=== PATIENT | female | born 1965 | race Caucasian/White ===

== ENCOUNTER 2017-10-09 07:30 | Outpatient (CLI) | payer BC ==
[~2017-10-09] VITALS: Ht 170.2 cm; Wt 90.7 kg
[2017-10-09] MEDS ORDERED: CYCL10TA9 PO (08:16)
[2017-10-09] MEDS ORDERED: HYDR200T46 PO (08:16)
[2017-10-09] MEDS ORDERED: PRAV20TA3 PO (08:16)
[2017-10-09] MEDS ORDERED: LEVO125T6 PO (08:16)
[2017-10-09] MEDS ORDERED: PANT40TA3 PO (08:16)
[2017-10-09] MEDS ORDERED: CANA300T PO (08:16)
[2017-10-09] MEDS ORDERED: TRAM50TA2 PO (08:16)
== END 2017-10-09 08:22 ==
LOC: PREOP 07:30
PROVIDERS: ATTEND Otolaryngology Otolaryngology/Facial Plastic Surgery
DX: Z01.818 Encounter for other preprocedural examination (principal); J32.9 Chronic sinusitis, unspecified; H66.93 Otitis media, unspecified, bilateral; J34.3 Hypertrophy of nasal turbinates

== ENCOUNTER 2017-10-15 06:28 | Day surgery (SDC) | payer BC ==
[~2017-10-15] VITALS: Ht 170.2 cm; Wt 90.7 kg
[~2017-10-15 06:28] MED LIST: CANA300T PO; CYCL10TA9 PO; HYDR200T46 PO; LEVO125T6 PO; PANT40TA3 PO; PRAV20TA3 PO; TRAM50TA2 PO
[2017-10-15] MEDS ORDERED: COCAINE HCL 4% 2 ML SYR ONE (06:49)
[2017-10-15] MEDS ORDERED: BSS 15 ML ONE (06:49)
[2017-10-15] MEDS ORDERED: PHENYLEPHRINE 0.5% NASAL SPR (NEO-SYNEPHRINE) REG ONE (06:49)
[2017-10-15] MEDS ORDERED: LIDOCAINE/EPI 1%-1:200,000 (XYLOCAINE) 10 ML VIAL ONE (06:49)
[2017-10-15 07:00] VITALS: BP 134/93
[2017-10-15] MEDS ORDERED: AMPICILLIN/SULBACTAM 1.5 GM/NS 100 ML IVPB IV ONE ×2 (07:15)
[2017-10-15] MEDS ORDERED: HYDROCORTISONE 100 MG/2 ML (Solu-CORTEF) VIAL IV ONE ×2 (07:15→07:30)
--- NOTE | 2017-10-15 07:16 | Progress Note-Pre Operative ---
Pre-Operative Progress Note H&P Reviewed The H&P was reviewed, patient examined and no changes noted. Date Seen by Provider: Oct 15, 2017 Time Seen by Provider: 07:15 Date H&P Reviewed: Oct 15, 2017 Time H&P Reviewed: 07:15 Pre-Operative Diagnosis: Bilat Chronic Sinusitis, Deviated SEptum, Bilat red of inf turbs, Bilat YENY BOB BROOKS MD Oct 15, 2017 7:16 am
[2017-10-15] MEDS ORDERED: LIDOCAINE PF 2% 5 ML (XYLOCAINE) VIAL ONE (07:30)
[2017-10-15] MEDS ORDERED: SEVOFLURANE (ULTANE) 15 ML INHAL SOLN ONE ×3 (07:30→09:07)
[2017-10-15] MEDS ORDERED: FAMOTIDINE 20MG/2ML IV (PEPCID) IV ONE (07:30)
[2017-10-15] MEDS ORDERED: fentaNYL INJECTION 100 MCG/2 ML AMP ONE ×2 (07:30→08:45)
[2017-10-15] MEDS ORDERED: DEXAMETHASONE 10 MG/ML (DECADRON) 1 ML VIAL ONE (07:30)
[2017-10-15] MEDS ORDERED: ROCURONIUM 10 MG/ML 5 ML SYRINGE IV ONE (07:30)
[2017-10-15] MEDS ORDERED: AMPICILLIN/SULBACTAM INJECTION 1.5 GM in NS (IVPB) 100 ML IV ONE (07:30)
[2017-10-15] MEDS ORDERED: proPOfol 200 MG/20 ML (DIPRIVAN) VIAL IV ONE (07:30)
[2017-10-15] MEDS ORDERED: MIDAZOLAM 2 MG/2 ML (VERSED) VIAL ONE (07:30)
[2017-10-15] MEDS ORDERED: ONDANSETRON 4 MG/2 ML (SDV) Z0FRAN ONE (07:30)
[2017-10-15] MEDS ORDERED: GLYCOPYRROLATE 0.2 MG/ML (ROBINUL) 2 ML VIAL ONE (07:30)
[2017-10-15] MEDS ORDERED: NEOSTIGMINE 1 MG/ML 5 ML SYRINGE ONE (07:30)
[2017-10-15] MEDS: LACTATED RINGERS 1,000 ML IV PRN ×2 (07:32→08:25)
[2017-10-15] MEDS ORDERED: MEPERIDINE (DEMEROL) INJ 50 MG/ML IVP PRN (09:30)
[2017-10-15] MEDS ORDERED: ONDANSETRON 4 MG/2 ML (SDV) Z0FRAN IVP PRN (09:30)
[2017-10-15] MEDS ORDERED: D5 1/2 NS W/KCL 20 MEQ/L 1,000 ML IV SCH (09:31)
--- NOTE | 2017-10-15 09:31 | Progress Note-Post Operative ---
Post-Operative Progess Note Surgeon (s)/Tour Counselor (s) Surgeon BOB BROOKS MD Tour Counselor n/a Pre-Operative Diagnosis Bilat Chronic Sinusitis, Deviated SEptum, Bilat red of inf turbs, Bilat YENY Post-Operative Diagnosis same Post-Op Procedure Note Date of Procedure: Oct 15, 2017 Name of Procedure Performed: Bilat ESS, Nasal Septoplasty, Bilat Red of Inf Turbs Description & Findings Description and Findings: n/a Anesthesia Type get Estimated Blood Loss minimal Packing none. Specimen(s) collected/removed bilat chronic sinus disease, nasal septum BOB BROOKS MD Oct 15, 2017 9:31 am
[2017-10-15] MEDS ORDERED: HYDROcodone/APAP 5 MG/325 MG (LORTAB) TAB PO PRN (09:45)
[2017-10-15] MEDS ORDERED: predniSONE 20 MG TAB PO ONE (09:45)
[2017-10-15] MEDS ORDERED: ACETAMINOPHEN 325 MG TABLET/CAPLET (TYLENOL) PO PRN (09:45)
[2017-10-15] MEDS ORDERED: PROMETHAZINE INJ 25 MG/ML (PHENERGAN) AMP IVP PRN (09:45)
[2017-10-15] MEDS ORDERED: CIPR5DRO OP (09:51)
[2017-10-15] MEDS ORDERED: HYDR-3812 PO (09:51)
[2017-10-15] MEDS ORDERED: PRD20T PO (09:51)
[2017-10-15] MEDS ORDERED: AMOX-355 PO (09:51)
[2017-10-15] MEDS: morphine INJ 10 MG/ML 1ML (SYR OR VIAL) IVP PRN ×2 (10:00→10:04)
--- OUTSIDE RECORDS SUMMARY | 2017-10-15 10:37 | XMS REPORT | CCD ---
Author Author JENSEN MILTON Organization Unknown Address [address] [address] [place] [id number] Care Team Providers Care [employer] Superintendent Name Role Phone SHLOMO RUSH MD Attphys SHLOMO RUSH MD Prisurg Vital Signs Unknown. Allergies Unknown. Procedures Procedure Code Procedure Type Date HIP COMP MIN [address] 08/14/2013 CERVICAL SPINE; 2 VIEWS OR [id number] 08/2013 SHOULDER MINIMUM [id number] 08/14/2013 History of Immunizations Unknown. Problems Unknown. Results Unknown. Medications Unknown. Medications Administered Unknown. Encounters Unknown. Social History Smoking Status Code Start Date End Date Never smoker [id number] Patient Decision Aids Unknown. Instructions You were admitted to [facility] on 08/14/2013. You were discharged from [facility] on 08/14/2013. Should you have any questions prior to discharge, please contact a member of your healthcare team. If you have left the hospital and have any questions, please contact your primary care physician. Chief Complaint and Reason For Visit Chief Complaint Date of Onset FALL INJURY BACK INJURY Function Status Unknown. Plan of Care Unknown. Referral/Transition of Care Unknown.
--- OUTSIDE RECORDS SUMMARY | 2017-10-15 10:39 | XMS REPORT ---
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 Name Role Phone Kristy Winchester PCP Unavailable Shayy Fitzgerald PreferredProvider Unavailable Allergies and Adverse Reactions Name Reaction Notes Latex iodine Plan of Treatment Planned Activity Comments Planned Date Planned Time Plan/Goal Pap smear 07/01/2016 12:00 AM Comprehensive Metabolic Panel 07/01/2012 12:00 AM Lipid panel (total cholesterol, lipoproteins, HDL, triglycerides) 2011 12:00 AM Hemoglobin A1c 07/01/2012 12:00 AM Thyroid stimulating hormone (TSH) 07/01/2012 12:00 AM CBC (automated H&H, platelets, WBC and automated differential) 07/01/2012 12:00 AM Medications Active Name Start Date Estimated Completion Date SIG Comments loratadine 10 mg oral tablet 09/05/2013 TAKE 1 TABLET BY ORAL ROUTE ONCE DAILY clobetasol 0.05 % topical ointment 09/16/2013 APPLY TO AFFECTED RED AREA(S) EVERY NIGHT AT BEDTIME nystatin 100,000 unit/gram topical powder 01/26/2014 apply to the affected area(s) by topical route 2 times per day nystatin-triamcinolone 100,000-0.1 unit/g-% topical cream 01/26/2014 apply to the affected area(s) by topical route 2 times per day in the morning and evening cyclobenzaprine 10 mg oral tablet 04/26/2014 take 1 tablet (10 mg) by oral route 3 times per day for 30 days loratadine 10 mg oral tablet 06/30/2014 TAKE 1 TABLET BY ORAL ROUTE ONCE DAILY cyclobenzaprine 10 mg oral tablet 12/11/2014 TAKE 1 TABLET BY MOUTH THREE TIMES DAILY FOR 30 DAYS loratadine 10 mg oral tablet 07/17/2015 TAKE 1 TABLET BY ORAL ROUTE ONCE DAILY loratadine 10 mg oral tablet 09/12/2015 TAKE 1 TABLET BY ORAL ROUTE ONCE DAILY Invokana 100 mg oral tablet take 1 tablet (100 mg) by oral route once daily before the first meal of the day Name Start Date Expiration Date SIG Comments Flector 1.3 % transdermal patch 12 hour 07/26/2009 10/24/2009 apply 1 patch ( 180 mg) to most painful area by transdermal route 2 times per day for 30 days Medrol (Abram) 4 mg oral tablets,dose pack 08/29/2009 take as directed Flexeril 10 mg oral tablet 07/10/2010 09/08/2010 take1/2- 1 tablet (10 mg) by oral route q hs/PRN meloxicam 15 mg oral tablet 07/10/2010 11/07/2010 take 1 tablet (15 mg) by oral route once daily /PRN Loprox 1 % topical shampoo 07/11/2010 01/23/2011 apply 5 - 10 milliliters to wet hair by topical route twice weekly for 4 weeks with at least 3 days between each shampooing betamethasone valerate 0.1 % topical ointment 07/11/2010 07/25/2010 apply a thin film to affected area(s) by topical route 3 times per day for 14 days Prednisone 20 mg 07/11/2010 07/25/2010 one table PO QD amoxicillin 875 mg oral tablet 09/10/2010 09/20/2010 take 1 tablet (875 mg) by oral route every 12 hours for 10 days diclofenac sodium 75 mg oral tablet,delayed release (DR/EC) 07/15/20112011 TAKE 1 TABLET BY MOUTH ONCE DAILY NEEDED venlafaxine 150 mg oral capsule,extended release 24hr 09/22/2011 10/22/2011 TAKE 1 CAPSULE BY MOUTH ONCE DAILY WITH FOOD loratadine 10 mg oral tablet 11/13/2011 11/07/2012 take 1 tablet (10 mg) by oral route once daily Zithromax Z-Abram 250 mg oral tablet 06/07/2012 06/12/2012 Take 2 tablets the first day (500 mg) followed by 1 tablet (250 mg) days 2-5. for 5 days clobetasol 0.05 % topical ointment 07/01/2012 09/29/2012 APPLY TO AFFECTED RED AREA(S) EVERY NIGHT AT BEDTIME Advair Diskus 100-50 mcg/dose inhalation blister with device 07/01/20122012 USE ONE PUFF TWICE DAILY pravastatin 20 mg oral tablet 04/25/2013 07/24/2013 take 1 tablet (20 mg) by oral route once daily for 30 days Ultram 50 mg oral tablet 05/26/2013 07/25/2013 take 1 tablet (50 mg) by oral route every 4-6 hours as needed for 30 days Voltaren 1 % topical gel 05/26/2013 09/23/2013 apply 4 gram to affected area( s) by topical route 4 times cyclobenzaprine 10 mg oral tablet 07/28/2013 10/26/2013 take 1 tablet (10 mg) by oral route 3 times per day for 30 days Singulair 10 mg oral tablet 11/22/2013 05/21/2014 take 1 tablet (10 mg) by oral route once daily in the evening levothyroxine 50 mcg oral tablet 01/27/2014 04/27/2014 take 1 tablet (50 mcg ) by oral route once daily for 30 days Protonix 40 mg oral tablet,delayed release (DR/EC) 03/22/2014 07/20/2014 take 1 tablet (40 mg) by oral route once daily for 30 days Tessalon Perles 100 mg oral capsule 04/12/2014 04/22/2014 take 1 capsule ( 100 mg) by oral route 3 times per for 10 days Zipsor 25 mg oral capsule 10/18/2014 01/16/2015 take 1 capsule (25 mg) by oral route 4 times per day /PRN tramadol 50 mg oral tablet 10/18/2014 01/16/2015 take 1-2 tablets by oral route every 4-6 hours as needed amoxicillin 875 mg oral tablet 04/10/2015 04/20/2015 take 1 tablet (875 mg) by oral route every 12 hours for 10 days Discontinued Name Start Date Discontinued Date SIG Comments Cymbalta 60 mg oral capsule,delayed release(DR/EC) 08/29/2009 06/12/2010 take 1 capsule (60 mg) by oral route once daily ibuprofen 800 mg oral tablet 05/29/2010 07/10/2010 take 1 tablet by oral route 3 times a day as needed for 8 days may use OTC. ketoconazole 2 % topical shampoo 06/12/2010 11/13/2011 apply shampoo by topical route twice weekly with at least 3 days between each shampooing Synthroid 137 mcg oral tablet 06/13/2010 07/09/2011 take 1 tablet (137 mcg) by oral route once daily Calcium 600 + D(3) 600 mg(1,500mg) -400 unit oral tablet 07/01/2016 take 1 tablet by oral route daily aspirin 81 mg oral tablet,delayed release (DR/EC) 07/01/2016 take 1 tablet (81 mg) by oral route once daily Tetrix Kit (with CeraVe) topical cream 07/11/2010 11/13/2011 apply to affected area(s) by topical route daily ammonium lactate 12 % topical cream 07/11/2010 11/13/2011 apply to affected area(s) by topical route daily Effexor XR 150 mg oral capsule,extended release 24hr 09/10/2010 11/13/2011 take 1 capsule (150 mg) by oral route once daily with food Cymbalta 60 mg oral capsule,delayed release(DR/EC) 11/13/2011 07/28/2013 take 1 capsule (60 mg) by oral route once daily Tessalon Perles 100 mg oral capsule 06/07/2012 07/01/2012 take 1-2 capsules by oral route 3 times a day as needed albuterol sulfate 90 mcg/actuation inhalation HFA aerosol inhaler 06/21/2012 04/22/2013 inhale 1 - 2 puffs by inhalation route every 6 hours as needed promethazine-codeine 6.25-10 mg/5 mL oral syrup 06/21/2012 04/22/2013 take 5 milliliters by oral route every 4-6 hours as needed, not to exceed 30 mL in 24 hours Medrol (Abram) 4 mg oral tablets,dose pack 06/21/2012 07/01/2012 take as directed doxycycline hyclate 100 mg oral capsule 07/28/2013 take 1 capsule (100 mg) by oral route once daily pravastatin 20 mg oral tablet 07/02/2012 04/22/2013 take 1 tablet (20 mg) by oral route once daily at bedtime Naprelan CR 500 mg oral tablet, ER multiphase 24 hr 11/25/2012 07/28/2013 take 2 tablet (500 mg) by oral route daily for 30 days pravastatin 20 mg oral tablet 11/10/2013 07/01/2016 TAKE 1 TABLET BY MOUTH EVERY DAY Mobic 15 mg oral tablet 01/20/2014 03/01/2014 take 1 tablet (15 mg) by oral route once daily for 30 days on HOLD,trying new medication Zithromax Z-Abram 250 mg oral tablet 04/11/2014 06/22/2014 Take 2 tablets the first day (500 mg) followed by 1 tablet (250 mg) days 2-5. for 5 days Medrol (Abram) 4 mg oral tablets,dose pack 04/11/2014 06/22/2014 take as directed Medrol (Abram) 4 mg oral tablets,dose pack 04/10/2015 07/01/2016 take as directed Problem List Description Status Onset Asthma Active Migraine Active Depressive Disorder Active Joint Pain Active cervical neck pain Active Menopausal Syndrome Active Hypothyroidism, Acquired Active GERD Active Eczema Active Chemical/Irritant Dermatitis Active 07/11/2010 Vital Signs Date Time BP-Sys(mm[Hg] BP-Nicolette(mm[Hg]) HR(bpm) RR(rpm) Temp WT HT HC BMI BSA BMI Percentile O2 Sat(%) 07/01/2016 9:34:00 AM 139 mmHg 94 mmHg 80 bpm 98.7 F 220 lbs 67 in 34.46 kg/m2 2.17 m2 01/17/2016 10:15:00 AM 110 mmHg 78 mmHg 79 bpm 16 rpm 215 lbs 67 in 33.6734 kg/m 2.1471 m 96 % 04/10/2015 7:40:00 PM 79 bpm 20 rpm 98 F 211 lbs 100 % 06/22/2014 9:02:00 AM 130 mmHg 70 mmHg 70 bpm 97.9 F 212 lbs 67 in 33.2036 kg/m 2.1321 m 05/15/2014 2:06:00 PM 110 mmHg 80 mmHg 74 bpm 16 rpm 97.7 F 213.125 lbs 67 in 33.38 kg/m2 2.14 m2 04/11/2014 7:47:00 PM 124 mmHg 72 mmHg 92 bpm 18 rpm 99.5 F 208.125 lbs 67 in 32.5966 kg/m 2.1125 m 100 % 03/22/2014 11:33:00 AM 124 mmHg 86 mmHg 77 bpm 16 rpm 96 F 208 lbs 67 in 32.58 kg/m2 2.11 m2 98 % 02/23/2014 3:02:00 PM 116 mmHg 80 mmHg 82 bpm 16 rpm 97.2 F 210 lbs 67 in 32.8903 kg/m 2.122 m 01/26/2014 9:24:00 AM 122 mmHg 74 mmHg 76 bpm 18 rpm 97 F 202.375 lbs 67 in 31.70 kg/m2 2.08 m2 100 % 09/19/2013 8:40:00 AM 110 mmHg 70 mmHg 64 bpm 16 rpm 96.6 F 197.25 lbs 67 in 30.8934 kg/m 2.0566 m 07/28/2013 9:14:00 AM 126 mmHg 84 mmHg 62 bpm 16 rpm 96.3 F 194 lbs 67 in 30.38 kg/m2 2.04 m2 06/24/2013 8:38:00 AM 132 mmHg 74 mmHg 64 bpm 16 rpm 97.1 F 196 lbs 66.5 in 31.161 kg/m 2.0424 m 05/26/2013 1:31:00 PM 124 mmHg 80 mmHg 70 bpm 16 rpm 97.2 F 202 lbs 67 in 31.64 kg/m2 2.08 m2 05/06/2013 8:33:00 AM 122 mmHg 88 mmHg 86 bpm 18 rpm 97.4 F 212 lbs 67 in 33.2036 kg/m 2.1321 m 98 % 04/22/2013 8:26:00 AM 112 mmHg 75 mmHg 76 bpm 18 rpm 98 F 209 lbs 67 in 32.73 kg/m2 2.12 m2 98 % 03/30/2013 11:32:00 AM 130 mmHg 94 mmHg 64 bpm 20 rpm 97 F 208 lbs 67 in 32.5771 kg/m 2.1119 m 11/25/2012 9:08:00 AM 138 mmHg 84 mmHg 64 bpm 16 rpm 96.7 F 190 lbs 67 in 29.76 kg/m2 2.02 m2 10/07/2012 8:10:00 AM 132 mmHg 92 mmHg 74 bpm 16 rpm 97 F 182 lbs 67 in 28.5049 kg/m 1.9755 m 09/08/2012 8:20:00 AM 110 mmHg 80 mmHg 64 bpm 16 rpm 97 F 185 lbs 67 in 28.97 kg/m2 1.99 m2 08/06/2012 11:13:00 AM 104 mmHg 58 mmHg 74 bpm 16 rpm 97.3 F 192 lbs 67 in 30.0711 kg/m 2.029 m 07/01/2012 9:29:00 AM 140 mmHg 90 mmHg 68 bpm 16 rpm 95.5 F 184.25 lbs 99 % 06/21/2012 10:28:00 AM 67 bpm 18 rpm 97.2 F 182.425 lbs 99 % 06/07/2012 3:47:00 PM 118 mmHg 78 mmHg 75 bpm 18 rpm 184.4 lbs 67 in 28.8808 kg/m 1.9885 m 100 % 11/13/2011 10:29:00 AM 132 mmHg 100 mmHg 77 bpm 16 rpm 98 F 215.5 lbs 67 in 33.75 kg/m2 2.15 m2 98 % 11/13/2011 8:12:00 AM 110 mmHg 80 mmHg 70 bpm 16 rpm 97.2 F 217.375 lbs 67 in 34.0454 kg/m 2.1589 m 07/09/2011 3:34:00 PM 135 mmHg 88 mmHg 96.4 F 217 lbs 67 in 33.99 kg/m2 2.16 m2 05/08/2011 9:49:00 AM 124 mmHg 92 mmHg 74 bpm 18 rpm 96.9 F 215 lbs 04/03/2011 8:08:00 AM 110 mmHg 80 mmHg 72 bpm 16 rpm 97.2 F 217 lbs 67 in 33.99 kg/m2 2.16 m2 09/10/2010 9:43:00 AM 124 mmHg 90 mmHg 93 bpm 16 rpm 99.4 F 221.125 lbs 98 % 07/30/2010 11:06:00 AM 110 mmHg 80 mmHg 76 bpm 16 rpm 96.9 F 223 lbs 07/11/2010 9:06:00 AM 140 mmHg 70 mmHg 76 bpm 16 rpm 97 F 224.375 lbs 67 in 35.1417 kg/m 2.1934 m 99 % 07/10/2010 8:13:00 AM 144 mmHg 92 mmHg 72 bpm 16 rpm 97.5 F 223 lbs 07/08/2010 9:18:00 AM 126 mmHg 91 mmHg 79 bpm 222 lbs 67 in 34.77 kg/m2 2.1818 m 06/12/2010 8:48:00 AM 132 mmHg 98 mmHg 73 bpm 97.2 F 221.375 lbs 99 % 12/19/2009 12:53:00 PM 126 mmHg 90 mmHg 72 bpm 16 rpm 96.1 F 208 lbs 11/01/2009 1:06:00 PM 118 mmHg 74 mmHg 76 bpm 16 rpm 97.8 F 213 lbs 10/04/2009 8:06:00 AM 126 mmHg 78 mmHg 76 bpm 20 rpm 97.2 F 203 lbs 09/06/2009 1:30:00 PM 108 mmHg 64 mmHg 76 bpm 16 rpm 98.5 F 203.125 lbs 08/29/2009 8:43:00 AM 122 mmHg 74 mmHg 70 bpm 16 rpm 99.5 F 201.25 lbs 07/26/2009 8:00:00 AM 104 mmHg 62 mmHg 68 bpm 18 rpm 98.3 F 203 lbs Social History Name Description Comments Tobacco Never smoker lives alone in a house Single No children 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 [facility] History of Procedures Date Ordered Description Order Status 08/29/2009 12:00 AM ASSAY THYROID STIM HORMONE Reviewed 06/25/2011 12:00 AM MUSCLE TEST ONE LIMB Reviewed 06/25/2011 12:00 AM NERVE CONDUCTION, MOTOR Reviewed 06/25/2011 12:00 AM NERVE CONDUCTION, SENSORY Reviewed 07/09/2011 12:00 AM CYTOPATH C/V MANUAL Reviewed 07/09/2011 12:00 AM SPECIMEN HANDLING OFFICE-LAB Reviewed 07/09/2011 12:00 AM MAMMOGRAM BOTH BREASTS Reviewed 07/01/2016 12:00 AM SPECIMEN HANDLING OFFICE-LAB Reviewed 11/13/2011 12:00 AM COMPREHEN METABOLIC PANEL Reviewed 11/13/2011 12:00 AM LIPID PANEL Reviewed 11/13/2011 12:00 AM ASSAY THYROID STIM HORMONE Reviewed 11/13/2011 12:00 AM COMPLETE CBC W/AUTO DIFF WBC Reviewed 06/07/2012 12:00 AM THER/PROPH/DIAG INJ SC/IM Reviewed 06/07/2012 12:00 AM Decadron, Per 1 Mg [facility]# [address]-15 Reviewed 06/07/2012 12:00 AM Depo-Medrol, Per 80 Mg [facility]#8646-5742-43 Reviewed 06/21/2012 12:00 AM CHEST X-RAY 2VW FRONTAL&LATL Reviewed 06/21/2012 12:00 AM CULTURE OTHR SPECIMN AEROBIC Reviewed 07/01/2012 12:00 AM IMMUNIZATION ADMIN Reviewed 07/01/2012 12:00 AM TDAP VACCINE 7 YRS/> IM Reviewed 07/09/2012 12:00 AM CYTOPATH TBS C/V MANUAL Reviewed 07/09/2012 12:00 AM SPECIMEN HANDLING OFFICE-LAB Reviewed 07/20/2012 12:00 AM NERVE CONDUCTION, MOTOR Reviewed 07/20/2012 12:00 AM NERVE CONDUCTION, SENSORY Reviewed 04/22/2013 12:00 AM ASSAY THYROID STIM HORMONE Reviewed 04/22/2013 12:00 AM COMPLETE CBC W/AUTO DIFF WBC Reviewed 04/22/2013 12:00 AM GLYCOSYLATED HEMOGLOBIN TEST Reviewed 04/22/2013 12:00 AM LIPID PANEL Reviewed 04/22/2013 12:00 AM COMPREHEN METABOLIC PANEL Reviewed 05/26/2013 12:00 AM MRI NECK SPINE W/O DYE Reviewed 07/01/2013 12:00 AM MAMMOGRAM BOTH BREASTS Reviewed 09/19/2013 12:00 AM METABOLIC PANEL TOTAL CA Reviewed 09/19/2013 12:00 AM ASSAY OF MAGNESIUM Reviewed 06/12/2010 12:00 AM ASSAY THYROID STIM HORMONE Reviewed 06/12/2010 12:00 AM COMPREHEN METABOLIC PANEL Reviewed 06/12/2010 12:00 AM LIPID PANEL Reviewed 06/12/2010 12:00 AM COMPLETE CBC W/AUTO DIFF WBC Reviewed 07/08/2010 12:00 AM CYTOPATH C/V MANUAL Reviewed 07/08/2010 12:00 AM SPECIMEN HANDLING OFFICE-LAB Reviewed 07/08/2010 12:00 AM ASSAY OF ESTRADIOL Reviewed 07/08/2010 12:00 AM ASSAY OF GONADOTROPIN (FSH) Reviewed 01/26/2014 12:00 AM COMPLETE CBC W/AUTO DIFF WBC Reviewed 01/26/2014 12:00 AM COMPREHEN METABOLIC PANEL Reviewed 01/26/2014 12:00 AM LIPID PANEL Reviewed 01/26/2014 12:00 AM ASSAY THYROID STIM HORMONE Reviewed 02/27/2014 12:00 AM INJ TRIGGER POINT 1/2 MUSCL Reviewed 02/27/2014 12:00 AM Kenalog, Per 10 Mg [facility]#4555-5112-91 Reviewed 09/10/2010 12:00 AM THER/PROPH/DIAG INJ SC/IM Reviewed 09/10/2010 12:00 AM Depo-Medrol 120 Mg Im JOHN Reviewed 06/22/2014 12:00 AM MAMMOGRAM SCREENING Reviewed 06/22/2014 12:00 AM CYTOPATH TBS C/V MANUAL Reviewed Results Summary Data and Description Results 08/29/2009 8:45 AM Colonoscopy-Women and Men over 50 Declined Mammogram -Women over 40 Normal Pap Smear Negative 08/29/2009 9:26 AM TSH 2.060 uIU/mL 06/12/2010 12:00 AM Cholest Cry Stone Ql IR 208.0 %LDLc SerPl-mCnc 129.0 mg/ dLGlucose SerPl-mCnc 95.0 mg/dL 06/12/2010 9:42 AM TRIGLYCERIDES 151.0 mg/dLCHOLESTEROL 208.0 mg/dLHDL 49.0 mg/ dLTOT CHOL/HDL 4.2 LDL (CALC) 129.0 mg/dLTSH 5.230 uIU/mLGLUCOSE 95.0 mg/ dLSODIUM 139.0 mmol/LPOTASSIUM 4.10 mmol/LCHLORIDE 105.0 mmol/LCO2 26.0 mmol/ LBUN 13.0 mg/dLCREATININE 0.80 mg/dLSGOT/AST 16.0 IU/LSGPT/ALT 16.0 IU/LALK PHOS 83.0 IU/LTOTAL PROTEIN 7.90 g/dLALBUMIN 4.10 g/dLTOTAL BILI 0.20 mg/ dLCALCIUM 9.60 mg/dLAGE 44 GFR NonAA 77 GFR AA 93 eGFR >60 mL/min/1.73 m2eGFR AA * >60 WBC 4.4 RBC 4.13 HGB 12.90 g/dLHCT 39.40 %MCV 95.0 fLMCH 31.20 pgMCHC 32.70 g/dLRDW SD 45 RDW CV 12.80 %MPV 10.40 fLPLT 220 NRBC# 0.00 NRBC% 0.0 % NEUT 46.70 %%LYMP 43.20 %%MONO 6.60 %%EOS 3.0 %%BASO 0.50 %#NEUT 2.06 #LYMP 1.90 #MONO 0.29 #EOS 0.13 #BASO 0.02 MANUAL DIFF NOT IND 07/04/2010 12:00 AM Mammogram -Women over 40 Normal 07/10/2010 12:10 PM Depression Has Depression HIV1+2 Ab Ser Ql no risk Dexa Bone Scan Refused 07/11/2010 9:16 AM Aspirin reccommended Reccommended 03/21/2011 9:33 AM WBC 3.9 RBC 3.91 HGB 12.50 g/dLHCT 37.30 %MCV 95.0 fLMCH 32.0 pgMCHC 33.50 g/dLRDW SD 46 RDW CV 13.30 %MPV 10.40 fLPLT 223 NRBC# 0.00 NRBC% 0.0 %NEUT 52.10 %%LYMP 37.0 %%MONO 7.0 %%EOS 3.60 %%BASO 0.30 %#NEUT 2.01 #LYMP 1.43 #MONO 0.27 #EOS 0.14 #BASO 0.01 MANUAL DIFF NOT IND GLUCOSE 93.0 mg/ dLSODIUM 140.0 mmol/LPOTASSIUM 3.70 mmol/LCHLORIDE 105.0 mmol/LCO2 27.0 mmol/ LBUN 15.0 mg/dLCREATININE 0.80 mg/dLSGOT/AST 15.0 IU/LSGPT/ALT 16.0 IU/LALK PHOS 69.0 IU/LTOTAL PROTEIN 7.60 g/dLALBUMIN 3.90 g/dLTOTAL BILI 0.40 mg/ dLCALCIUM 9.20 mg/dLAGE 45 GFR NonAA 77 GFR AA 93 eGFR >60 mL/min/1.73 m2eGFR AA * >60 TRIGLYCERIDES 91.0 mg/dLCHOLESTEROL 208.0 mg/dLHDL 50.0 mg/dLTOT CHOL/HDL 4.2 LDL (CALC) 140.0 mg/dLGLYCOHEMOGLOBIN A1C 5.70 % 11/13/2011 10:31 AM Colonoscopy-Women and Men over 50 Declined Mammogram -Women over 40 Normal Pap Smear Negative 11/13/2011 11:05 AM WBC 3.9 RBC 4.14 HGB 13.0 g/dLHCT 39.30 %MCV 95.0 fLMCH 31.40 pgMCHC 33.10 g/dLRDW SD 46 RDW CV 13.10 %MPV 10.80 fLPLT 261 NRBC# 0.00 NRBC% 0.0 %NEUT 54.60 %%LYMP 35.10 %%MONO 7.90 %%EOS 2.10 %%BASO 0.30 %#NEUT 2.13 #LYMP 1.37 #MONO 0.31 #EOS 0.08 #BASO 0.01 MANUAL DIFF NOT IND GLUCOSE 102.0 mg/dLSODIUM 141.0 mmol/LPOTASSIUM 4.40 mmol/LCHLORIDE 105.0 mmol/LCO2 28.0 mmol/LBUN 16.0 mg/dLCREATININE 0.80 mg/dLSGOT/AST 16.0 IU/LSGPT/ALT 16.0 IU /LALK PHOS 81.0 IU/LTOTAL PROTEIN 8.0 g/dLALBUMIN 4.30 g/dLTOTAL BILI 0.40 mg/ dLCALCIUM 9.50 mg/dLAGE 46 GFR NonAA 77 GFR AA 93 eGFR 60 eGFR AA* 60 TRIGLYCERIDES 86.0 mg/dLCHOLESTEROL 215.0 mg/dLHDL 48.0 mg/dLTOT CHOL/HDL 4.5 LDL (CALC) 150.0 mg/dLTSH 4.120 uIU/mL 06/21/2012 10:12 AM WBC 4.0 RBC 4.25 HGB 13.50 g/dLHCT 40.0 %MCV 94.0 fLMCH 31.80 pgMCHC 33.80 g/dLRDW SD 44 RDW CV 12.80 %MPV 10.40 fLPLT 257 NRBC# 0.00 NRBC% 0.0 %NEUT 50.20 %%LYMP 40.50 %%MONO 6.30 %%EOS 2.50 %%BASO 0.50 %#NEUT 2.01 #LYMP 1.62 #MONO 0.25 #EOS 0.10 #BASO 0.02 MANUAL DIFF NOT IND GLUCOSE 90.0 mg/dLSODIUM 142.0 mmol/LPOTASSIUM 3.60 mmol/LCHLORIDE 106.0 mmol/LCO2 28.0 mmol/LBUN 16.0 mg/dLCREATININE 0.80 mg/dLSGOT/AST 11.0 IU/LSGPT/ALT 10.0 IU/ LALK PHOS 76.0 IU/LTOTAL PROTEIN 7.90 g/dLALBUMIN 4.10 g/dLTOTAL BILI 0.70 mg/ dLCALCIUM 9.80 mg/dLAGE 46 GFR NonAA 77 GFR AA 93 eGFR 60 eGFR AA* 60 GLUCOSE 90.0 mg/dLSODIUM 142.0 mmol/LPOTASSIUM 3.60 mmol/LCHLORIDE 106.0 mmol/LCO2 28.0 mmol/LBUN 16.0 mg/dLCREATININE 0.80 mg/dLSGOT/AST 11.0 IU/LSGPT/ALT 10.0 IU/ LALK PHOS 76.0 IU/LTOTAL PROTEIN 7.90 g/dLALBUMIN 4.10 g/dLTOTAL BILI 0.70 mg/ dLCALCIUM 9.80 mg/dLAGE 46 GFR NonAA 77 GFR AA 93 eGFR 60 eGFR AA* 60 TRIGLYCERIDES 71.0 mg/dLCHOLESTEROL 223.0 mg/dLHDL 56.0 mg/dLTOT CHOL/HDL 4.0 LDL (CALC) 153.0 mg/dLTSH 3.640 uIU/mL 04/22/2013 10:18 AM HGB A1C 5.60 %Est Avg Glucose 114.0 mg/dLGLUCOSE 95.0 mg/ dLSODIUM 145.0 mmol/LPOTASSIUM 3.60 mmol/LCHLORIDE 106.0 mmol/LCO2 29.0 mmol/ LBUN 13.0 mg/dLCREATININE 0.80 mg/dLSGOT/AST 19.0 IU/LSGPT/ALT 22.0 IU/LALK PHOS 72.0 IU/LTOTAL PROTEIN 7.70 g/dLALBUMIN 4.10 g/dLTOTAL BILI 0.50 mg/ dLCALCIUM 9.60 mg/dLAGE 47 GFR NonAA 76 GFR AA 92 eGFR >60 mL/min/1.73 m2eGFR AA * >60 TRIGLYCERIDES 79.0 mg/dLCHOLESTEROL 211.0 mg/dLHDL 60.0 mg/dLTOT CHOL/HDL 3.5 LDL (CALC) 135.0 mg/dLTSH 3.690 uIU/mLWBC 4.0 RBC 3.96 HGB 12.50 g/dLHCT 37.20 %MCV 94.0 fLMCH 31.60 pgMCHC 33.60 g/dLRDW SD 45 RDW CV 12.90 %MPV 10.10 fLPLT 255 NRBC# 0.00 NRBC% 0.0 %NEUT 52.70 %%LYMP 36.40 %%MONO 7.60 %%EOS 3.0 %% BASO 0.30 %#NEUT 2.09 #LYMP 1.44 #MONO 0.30 #EOS 0.12 #BASO 0.01 MANUAL DIFF NOT IND 09/19/2013 10:00 AM GLUCOSE 102.0 mg/dLSODIUM 141.0 mmol/LPOTASSIUM 3.50 mmol/ LCHLORIDE 103.0 mmol/LCO2 28.0 mmol/LBUN 18.0 mg/dLCREATININE 0.90 mg/dLCALCIUM 9.50 mg/dLAGE 48 GFR NonAA 66 GFR AA 80 eGFR >60 mL/min/1.73 m2eGFR AA* >60 MAGNESIUM 1.90 mg/dL 01/26/2014 9:52 AM WBC 3.8 RBC 3.91 HGB 12.20 g/dLHCT 36.40 %MCV 93.0 fLMCH 31.20 pgMCHC 33.50 g/dLRDW SD 44 RDW CV 13.0 %MPV 10.20 fLPLT 238 NRBC# 0.00 NRBC% 0.0 %NEUT 50.70 %%LYMP 40.0 %%MONO 6.10 %%EOS 2.70 %%BASO 0.50 %#NEUT 1.90 #LYMP 1.50 #MONO 0.23 #EOS 0.10 #BASO 0.02 MANUAL DIFF NOT IND GLUCOSE 96.0 mg/dLSODIUM 141.0 mmol/LPOTASSIUM 3.60 mmol/LCHLORIDE 104.0 mmol/LCO2 28.0 mmol/LBUN 16.0 mg/dLCREATININE 0.90 mg/dLSGOT/AST 19.0 IU/LSGPT/ALT 17.0 IU/ LALK PHOS 89.0 IU/LTOTAL PROTEIN 7.50 g/dLALBUMIN 4.10 g/dLTOTAL BILI 0.80 mg/ dLCALCIUM 9.40 mg/dLAGE 48 GFR NonAA 66 GFR AA 80 eGFR 60 eGFR AA* 60 TRIGLYCERIDES 79.0 mg/dLCHOLESTEROL 183.0 mg/dLHDL 61.0 mg/dLTOT CHOL/HDL 3.0 LDL (CALC) 106.0 mg/dLTSH 5.020 uIU/mL History Of Immunizations Name Date Admin Mfg Name Mfg Code Trade Name Lot# Route Inj Vis Given Vis Pub CVX Influenza 04/21/2010 Not Entered NE Not Entered Not Entered Not Entered 07/13/2015 07/13/2015 999 X 06/17/2006 [employer] MSD Pneumovax 23 Intramuscular Not Entered 07/13/2015 07/13/2015 999 Td 02/16/2007 sanofi pasteur PMC DECAVAC Intramuscular Not Entered 201507/13/2015 999 Tdap 07/01/2012 sanofi pasteur PMC Fluzone [id number] Intramuscular Left Deltoid 07/01/2012 11/26/2006 999 Influenza 04/13/2013 [facility] Fluzone Intramuscular Not Entered 07/13/2015 07/13/2015 141 History of Past Illness Name Date of Onset Comments Pain In Joint Involving Shoulder Region Jul 26 2009 8:05AM Right Upper myofascial pain Jul 26 2009 8:05AM Hypothyroidism, Acquired Aug 29 2009 8:50AM Asthma Aug 29 2009 8:50AM Depressive Disorder Aug 29 2009 8:50AM Eustachian Tube Dysfunction Aug 29 2009 8:50AM Pain In Joint Involving Shoulder Region Sep 06 2009 1:36PM Right Upper myofascial pain Sep 06 2009 1:36PM Pain In Joint Involving Shoulder Region Oct 04 2009 8:09AM Right Upper myofascial pain Oct 04 2009 8:09AM Asthma Migraine Endometriosis Depressive Disorder cervical neck pain followed by Dr Price Joint Pain shoulder . followed by Dr Price Menopausal Syndrome Bronchitis Hypothyroidism, Acquired GERD Eczema dyshydrotic Chemical/Irritant Dermatitis 07/11/2010 Pain In Joint Involving Shoulder Region Nov 01 2009 1:10PM Right Upper myofascial pain Nov 01 2009 1:10PM Bursitis Nov 01 2009 1:10PM Pain In Joint Involving Shoulder Region Dec 19 2009 12:56PM Right Upper myofascial pain Dec 19 2009 12:56PM Bursitis Dec 19 2009 12:56PM Deep Vein Thrombosis 1985 DVT in right calf, was on OCPs Cellulitis Seborrheic dermatitis Neck Pain May 29 2010 12:34PM Asthma Jun 12 2010 8:51AM Hypothyroidism, Acquired Jun 12 2010 8:51AM Depressive Disorder Jun 12 2010 8:51AM Seborrhea Capitis Jun 12 2010 8:51AM Routine gynecological examination Jul 08 2010 9:22AM Menopausal Syndrome Jul 08 2010 9:22AM Pain In Joint Involving Shoulder Region Jul 10 2010 8:18AM Cervicalgia Jul 10 2010 8:18AM Pain in joint; ankle and foot Jul 10 2010 8:18AM Contact Dermatitis Jul 11 2010 9:23AM Chemical/Irritant Dermatitis Jul 11 2010 9:23AM Pain In Joint Involving Shoulder Region Jul 30 2010 11:10AM Cervicalgia Jul 30 2010 11:10AM Pain in joint; ankle and foot Jul 30 2010 11:10AM Rhinitis, Allergic Sep 10 2010 9:48AM Sinusitis, Acute Sep 10 2010 9:48AM Dermatitis Sep 10 2010 9:48AM Skin Sensation Disturbance (Numbness) Apr 03 2011 8:07AM SI joint pain Apr 03 2011 8:07AM Pain in joint; hand 5th digit-right Apr 03 2011 8:07AM Skin Sensation Disturbance (Numbness) May 08 2011 9:47AM SI joint pain May 08 2011 9:47AM Pain in joint; hand 5th digit-right May 08 2011 9:47AM Pain in limb Jun 25 2011 11:29AM Skin Sensation Disturbance Jun 25 2011 11:29AM Routine gynecological examination Jul 09 2011 3:40PM Hypothyroidism, Acquired Nov 13 2011 10:34AM Screening for Ischemic Heart Disease Nov 13 2011 10:34AM Anxiety Disorder Nov 13 2011 10:34AM Asthma Nov 13 2011 10:34AM Lumbago Nov 13 2011 8:22AM Cough Jun 07 2012 3:52PM Upper Respiratory Infections Jun 07 2012 3:52PM Cough Jun 21 2012 10:32AM Respiratory System And Chest Symptoms (Chest congestion) Jun 21 2012 10:32AM Hyperlipidemia Jul 01 2012 9:33AM Hypothyroidism, Acquired Jul 01 2012 9:33AM Anxiety Disorder Jul 01 2012 9:33AM Asthma Jul 01 2012 9:33AM Rhinitis, Allergic Jul 01 2012 9:33AM Glucose Intolerance Jul 01 2012 9:33AM Adacel Jul 01 2012 2:50PM Gynecological Exam Jul 09 2012 9:05AM Menopausal Syndrome Jul 09 2012 9:05AM Pain in limb Jul 20 2012 11:56AM Skin Sensation Disturbance Jul 20 2012 11:56AM Lumbar spondylosis Aug 06 2012 11:16AM Lumbar spondylosis Sep 08 2012 8:28AM Lumbar spondylosis Oct 07 2012 8:17AM Lumbar spondylosis Nov 25 2012 9:20AM Sebaceous Cyst Mar 30 2013 11:34AM Fatigue Apr 22 2013 8:35AM Hypothyroidism, Acquired Apr 22 2013 8:35AM Asthma Apr 22 2013 8:35AM Dyshidrosis Apr 22 2013 8:35AM Sleep disturbance Apr 22 2013 8:35AM Weight Gain, Abnormal Apr 22 2013 8:35AM Weight Gain May 06 2013 8:41AM Rash Of Skin May 06 2013 8:41AM Lumbar spondylosis May 26 2013 1:41PM Cervical Radiculopathy May 26 2013 1:41PM Lumbar Radiculitis May 26 2013 1:41PM Postoperative Follow-up Jun 13 2013 1:28PM Lumbar spondylosis Jun 24 2013 8:41AM Lumbar Radiculitis Jun 24 2013 8:41AM Screening Mammogram Jul 01 2013 11:00AM Sebaceous Cyst May 31 2013 1:33PM Lumbar spondylosis Jul 28 2013 9:17AM Lumbar Radiculitis Jul 28 2013 9:17AM Lumbar spondylosis Sep 19 2013 8:44AM Muscle Spasm Sep 19 2013 8:44AM Fatigue Jan 26 2014 9:27AM Elevated glucose Jan 26 2014 9:27AM Candidiasis Jan 26 2014 9:27AM Lumbar spondylosis Feb 23 2014 3:17PM Muscle Spasm Feb 23 2014 3:17PM Myofascial pain Feb 23 2014 3:17PM Myofascial pain Feb 27 2014 8:49AM Sinusitis, Acute Apr 11 2014 7:49PM Upper Respiratory Infections Apr 11 2014 7:49PM Gastroesophageal Reflux Mar 22 2014 11:37AM Screening Mammogram Jun 22 2014 9:32AM Routine gynecological examination Jun 22 2014 9:08AM Screening Examination for Breast Cancer Jun 22 2014 9:08AM Lumbar spondylosis May 15 2014 2:07PM Myofascial pain May 15 2014 2:07PM Muscle Spasm May 15 2014 2:07PM Sinusitis, Acute Apr 10 2015 7:41PM Upper Respiratory Infections Apr 10 2015 7:41PM Generalized abdominal pain Jan 24 2016 10:54AM Diarrhea Jan 24 2016 10:54AM Dyspepsia Jan 24 2016 10:54AM Encounter for screening mammogram for breast cancer Jul 01 2016 9:57AM Routine gynecological examination Jul 01 2016 9:39AM Obesity Jul 01 2016 9:39AM Vulvovaginal candidiasis Jul 01 2016 9:39AM Payers Insurance Name Company Name Plan Name Plan Number Policy Number Policy Group Number Start Date BCBS [facility] [id number] N/A [facility] 0 N/A History of Encounters Visit Date Visit Type Provider 07/01/2016 Office visit Kristy Winchester FIELD REIMBURSEMENT MANAGER 01/25/2016 [facility] Haroldo Brewer MD 04/10/2015 Office visit Jammie Crawford FIELD REIMBURSEMENT MANAGER 06/22/2014 Office visit 06/22/2014 Office visit Kristy Winchester FIELD REIMBURSEMENT MANAGER 06/11/2014 Hospital Liz Bass MD 05/15/2014 Office visit Valentina ESCOBAR 04/11/2014 Office visit Maria Esther Roberts FIELD REIMBURSEMENT MANAGER 03/22/2014 Office visit Haroldo Brewer MD 02/23/2014 Office visit Valentina ESCOBAR 02/14/2014 Office visit Wei Guidry MD 01/26/2014 Office visit Malka Graves FIELD REIMBURSEMENT MANAGER 09/19/2013 Office visit Valentina Massey DIRECTOR ENVIRONMENTAL 07/28/2013 Office visit Valentina ESCOBAR 06/24/2013 Office visit Valentina ESCOBAR 06/13/2013 Office visit Haroldo Brewer MD 05/31/2013 Procedures Haroldo Brewer MD 05/26/2013 Office visit Valentina ESCOBAR 05/06/2013 Office visit Pauline Wayne MD 04/22/2013 Office visit Pauline Wayne MD 03/30/2013 Procedures Haroldo Brewer MD 11/25/2012 Office visit Bogdan Price MD 10/07/2012 Office visit Bogdan Price MD 09/08/2012 Office visit Bogdan Price MD 08/17/2012 Hospital Bogdan Price MD 08/06/2012 Office visit Bogdan Price MD 07/20/2012 Procedures Bogdan Price MD 07/09/2012 Office visit Koko Rivera MD 07/01/2012 Office visit Kayleigh Santiago MD 06/21/2012 Office visit Jammie Crawford FIELD REIMBURSEMENT MANAGER 06/07/2012 Office visit Jammie Crawford APRN 11/13/2011 Office visit Kayleigh Santiago MD 11/13/2011 Office visit Bogdan Price MD 07/09/2011 Office visit Nita Torres MD 06/25/2011 Procedures Bogdan Price MD 05/08/2011 Office visit Bogdan Price MD 04/22/2011 Hospital Bogdan Price MD 04/03/2011 Office visit Bogdan Price MD 09/10/2010 Office visit Kayleigh Santiago MD 07/30/2010 Office visit Bogdan Price MD 07/11/2010 Office visit Haroldo Celaya DO 07/10/2010 Office visit Bogdan Price MD 07/08/2010 Office visit Nita Torres MD 06/12/2010 Office visit Kayleigh Santiago MD 05/29/2010 Office visit James Greer PA-C 12/19/2009 Office visit Bogdan Price MD 11/01/2009 Office visit Bogdan Price MD 10/04/2009 Office visit Bogdan Price MD 09/06/2009 Office visit Bogdan Price MD 08/29/2009 Office visit Kayleigh Santiago MD 07/26/2009 Office visit Bogdan Price MD
--- OUTSIDE RECORDS SUMMARY | 2017-10-15 10:41 | XMS REPORT ---
Author Author Donald Monet [facility] Address [address] [place] [id number] Care Team Providers Care Can Line Examiner Name Role Phone Donald Monet PCP Shayy Fitzgerald PreferredProvider Unavailable Allergies and Adverse Reactions Name Reaction Notes Latex iodine Plan of Treatment Planned Activity Comments Planned Date Planned Time Plan/Goal Comprehensive Metabolic Panel 07/01/2012 12:00 AM Lipid [...] ONCE DAILY cyclobenzaprine 10 mg oral tablet 04/26/2014 take [...] before the first meal of the day levothyroxine 112 mcg oral tablet take 1 tablet (112 mcg) by oral route once daily Voltaren 1 % topical gel apply 2 gram to the affected area(s) by topical route 4 times per day diclofenac sodium 1 % topical gel 06/09/2017 apply 2 gram to the affected area(s) by topical route 4 times per day for 30 days Name Start Date Expiration Date SIG Comments [...] 3 times per day for 30 days levothyroxine 50 mcg oral tablet 01/27/2014 04/27/2014 [...] route every 12 hours for 10 days Bactrim DS 800-160 mg oral tablet 11/16/2016 11/26/2016 take 1 tablet by oral route every 12 hours for [...] by oral route daily for 30 days clobetasol 0.05 % topical ointment 09/16/2013 11/16/2016 APPLY TO AFFECTED RED AREA(S) EVERY NIGHT AT BEDTIME pravastatin 20 mg oral tablet 11/10/2013 07/01/2016 TAKE 1 TABLET BY MOUTH EVERY DAY Singulair 10 mg oral tablet 11/22/2013 06/09/2017 take 1 tablet (10 mg) by oral route once daily in the evening Mobic 15 mg oral tablet 01/20/2014 03/01/2014 take 1 tablet (15 mg) by oral route once daily for 30 days on HOLD,trying new medication nystatin 100,000 unit/gram topical powder 01/26/2014 11/16/2016 apply to the affected area(s) by topical route 2 times per day nystatin-triamcinolone 100,000-0.1 unit/g-% topical cream 01/26/2014 11/16/2016 apply to the affected area(s) by topical route 2 times per day in the morning and evening Zithromax Z-Abram 250 mg oral tablet 04/11/2014 06/22/2014 Take 2 tablets the first day (500 mg) followed by 1 tablet (250 mg) days 2-5. for 5 days Medrol (Abram) 4 mg oral tablets,dose pack 04/11/2014 06/22/2014 take as directed Medrol (Abram) 4 mg oral tablets,dose pack 04/10/2015 07/01/2016 take as directed loratadine 10 mg oral tablet 09/12/2015 11/16/2016 TAKE 1 TABLET BY ORAL ROUTE ONCE DAILY Problem List Description Status Onset Asthma Active Migraine Active Depressive Disorder Active Joint Pain Active cervical neck pain Active Menopausal Syndrome Active Hypothyroidism, Acquired Active GERD Active Eczema Active Chemical/Irritant Dermatitis Active 07/11/2010 Vital Signs Date Time BP-Sys(mm[Hg] BP-Nicolette(mm[Hg]) HR(bpm) RR(rpm) Temp WT HT HC BMI BSA BMI Percentile O2 Sat(%) 06/09/2017 4:04:00 PM 122 mmHg 64 mmHg 99 bpm 98.2 F 229 lbs 97 % 11/16/2016 4:38:00 PM 138 mmHg 82 mmHg 87 bpm 18 rpm 98.5 F 229 lbs 67 in 35.8661 kg/m 2.2159 m 96 % 07/01/2016 9:34:00 AM 139 mmHg 94 mmHg [...] mmHg 79 bpm 222 lbs 67 in 34.7698 kg/m 2.1818 m 06/12/2010 8:48:00 AM 132 mmHg [...] alone in a house 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 [facility] History of Procedures Date Ordered Description Order Status 08/29/2009 12:00 AM ASSAY THYROID STIM HORMONE Reviewed 06/25/2011 12:00 AM MUSCLE TEST ONE LIMB Reviewed 06/25/2011 12:00 AM NERVE CONDUCTION, MOTOR Reviewed 06/25/2011 12:00 AM NERVE CONDUCTION, SENSORY Reviewed 07/09/2011 12:00 AM CYTOPATH C/V MANUAL Reviewed 07/09/2011 12:00 AM SPECIMEN HANDLING OFFICE-LAB Reviewed 07/09/2011 12:00 AM MAMMOGRAM BOTH BREASTS Reviewed 07/01/2016 12:00 AM Screening mammography, bilateral Reviewed 07/01/2016 12:00 AM CYTOPATH C/V THIN LAYER Reviewed 07/01/2016 12:00 AM SPECIMEN HANDLING OFFICE-LAB Reviewed 11/13/2011 12:00 AM COMPREHEN METABOLIC PANEL Reviewed 11/13/2011 12:00 AM LIPID PANEL Reviewed 11/13/2011 12:00 AM ASSAY THYROID STIM HORMONE Reviewed 11/13/2011 12:00 AM COMPLETE CBC W/AUTO DIFF WBC Reviewed 11/16/2016 5:16 PM URINALYSIS AUTO W/O SCOPE Reviewed 11/16/2016 12:00 AM URINE CULTURE/COLONY COUNT Reviewed 06/07/2012 12:00 AM THER/PROPH/DIAG INJ SC/IM Reviewed 06/07/2012 12:00 AM Decadron, Per 1 Mg [facility]# [address]-17 Reviewed 06/07/2012 12:00 AM Depo-Medrol, Per 80 Mg [facility]#6558-0968-47 Reviewed 06/21/2012 12:00 AM CHEST X-RAY 2VW [...] 02/27/2014 12:00 AM Kenalog, Per 10 Mg [facility]#4642-0005-49 Reviewed 09/10/2010 12:00 AM THER/PROPH/DIAG INJ SC/IM Reviewed 09/10/2010 12:00 AM Depo-Medrol 120 Mg Im JOHN Reviewed 06/22/2014 12:00 AM MAMMOGRAM SCREENING Reviewed 06/22/2014 12:00 AM CYTOPATH TBS C/V MANUAL Reviewed Results Summary Date and Description Results 06/12/2010 9:42 AM TRIGLYCERIDES 151.0 mg/dLCHOLESTEROL 208.0 [...] 0.13 #BASO 0.02 MANUAL DIFF NOT IND 11/13/2011 11:05 AM WBC 3.9 RBC 4.14 [...] 4.5 LDL (CALC) 150.0 mg/dLTSH 4.120 uIU/mL 04/22/2013 10:18 AM HGB A1C 5.60 [...] 3.0 LDL (CALC) 106.0 mg/dLTSH 5.020 uIU/mL 11/16/2016 5:16 PM Clarity Ur CLEAR Color Ur YELLOW Glucose Ur-sCnc NEGATIVE Bilirub Ur Ql Strip NEGATIVE Ketones Ur Ql Strip TRACE Sp Gr Ur Qn 1.015 Hgb Ur Ql Strip MODERATE pH Ur-LsCnc 5.5 Prot Ur Ql Strip TRACE Urobilinogen Ur-mCnc 1.0 Nitrite Ur Ql Strip NEGATIVE WBC Est Ur Ql Strip SMALL History Of Immunizations Name Date Admin Mfg Name Mfg Code Trade Name Lot# Route Inj Vis Given Vis Pub CVX Influenza 04/21/2010 Not Entered NE Not Entered Not Entered Not Entered 07/13/2016 07/13/2016 999 X 06/17/2006 [employer] MSD Pneumovax 23 Intramuscular Not Entered 07/13/2016 07/13/2016 999 Td 02/16/2007 sanofi pasteur PMC DECAVAC Intramuscular Not Entered 201607/13/2016 999 Tdap 07/01/2012 sanofi pasteur PMC Fluzone [id number] Intramuscular Left Deltoid 07/01/2012 11/26/2006 999 Influenza 04/13/2013 sanofi pasteur PMC Fluzone Intramuscular Not Entered 07/13/2016 07/13/2016 141 History of Past Illness Name Date [...] 9:39AM Vulvovaginal candidiasis Jul 01 2016 9:39AM UTI (urinary tract infection) Nov 16 2016 4:43PM Sinusitis Nov 16 2016 4:43PM Sebaceous cyst Apr 08 2017 11:46AM Lumbar spondylosis Jun 09 2017 4:12PM Chronic pain syndrome Jun 09 2017 4:12PM Strain of right deltoid muscle, initial encounter Jun 09 2017 4:12PM Strain of back Jun 09 2017 4:12PM Payers Insurance Name Company Name Plan Name Plan Number Policy Number Policy Group Number [facility] Date [id number] N[facility] Health [facility] Employee Health 0 N/A History of Encounters Visit Date Visit Type Provider 06/09/2017 Office visit Donald Monet DO 04/08/2017 Procedures Haroldo Brewer MD 11/16/2016 Office visit Feliz Sosa NP 07/01/2016 Office visit Kristy Winchester BOILER ASSISTANT OPERATOR 01/25/2016 Hospital Haroldo Brewer MD 04/10/2015 Office visit Jammie Crawford BOILER ASSISTANT OPERATOR 06/22/2014 Office visit 06/22/2014 Office visit Kristy Winchester BOILER ASSISTANT OPERATOR 06/11/2014 Hospital Liz Bass MD 05/15/2014 Office visit Valentina ESCOBAR 04/11/2014 Office visit Maria Esther Roberts BOILER ASSISTANT OPERATOR 03/22/2014 Office visit Haroldo Brewer MD 02/23/2014 Office visit Valentina ESCOBAR 02/14/2014 Office visit Wei Guidry MD 01/26/2014 Office visit Malka Graves BOILER ASSISTANT OPERATOR 09/19/2013 Office visit Valentina ESCOBAR 07/28/2013 Office visit Valentina Massey COMPUTER SYSTEMS ADMINISTRATOR 06/24/2013 Office visit Valentina Massey COMPUTER SYSTEMS ADMINISTRATOR 06/13/2013 Office visit Haroldo Brewer MD 05/31/2013 Procedures Haroldo Brewer MD 05/26/2013 Office visit Valentina M. Bryson WARDP 05/06/2013 Office visit Pauline Wayne MD 04/22/2013 [...] Santiago MD 06/21/2012 Office visit Jammie Crawford BOILER ASSISTANT OPERATOR 06/07/2012 Office visit Jammie Crawford APRN 11/13/2011 Office visit Kayleigh Santiago MD 11/13/2011 Office visit Bogdan Price MD 07/09/2011 Office visit Nita Torres MD 06/25/2011 Procedures Bogdan Price MD 05/08/2011 Office visit Bogdan Price MD 04/22/2011 [facility] Bogdan Price MD 04/03/2011 Office visit [...]
--- OUTSIDE RECORDS SUMMARY | 2017-10-15 10:42 | XMS REPORT ---
Author Author Feliz Sosa [facility] Address [address] [place], [place] [id number] Care Team Providers Care Shoe Sticks Repairer Name Role Phone Feliz Sosa PCP Unavailable Shayy Fitzgerald PreferredProvider Unavailable Allergies [...] HC BMI BSA BMI Percentile O2 Sat(%) 11/16/2016 4:38:00 PM 138 mmHg 82 mmHg 87 bpm 18 rpm 98.5 F 229 lbs 67 in 35.87 kg/m2 2.22 m2 96 % 07/01/2016 9:34:00 AM 139 mmHg 94 mmHg 80 bpm 98.7 F 220 lbs 67 in 34.4565 kg/m 2.1719 m 01/17/2016 10:15:00 AM 110 mmHg 78 mmHg 79 bpm 16 rpm 215 lbs 67 in 33.67 kg/m2 2.15 m2 96 % 04/10/2015 7:40:00 PM 79 bpm [...] alone in a house 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 [facility] History of Procedures Date Ordered Description [...] 06/07/2012 12:00 AM Decadron, Per 1 Mg [facility]# [address]-50 Reviewed 06/07/2012 12:00 AM Depo-Medrol, Per 80 Mg [facility]#1315-3158-03 Reviewed 06/21/2012 12:00 AM CHEST X-RAY 2VW [...] 02/27/2014 12:00 AM Kenalog, Per 10 Mg [facility]#2490-7571-07 Reviewed 09/10/2010 12:00 AM THER/PROPH/DIAG INJ SC/IM Reviewed 09/10/2010 12:00 AM Depo-Medrol 120 Mg Im JOHN Reviewed 06/22/2014 12:00 AM MAMMOGRAM SCREENING Reviewed 06/22/2014 12:00 AM CYTOPATH TBS C/V MANUAL Reviewed Results Summary Date and Description Results 08/29/2009 8:45 AM Colonoscopy-Women [...] 999 Tdap 07/01/2012 sanofi pasteur PMC Fluzone [id number] Intramuscular Left Deltoid 07/01/2012 11/26/2006 999 Influenza [...] 2016 4:43PM Sinusitis Nov 16 2016 4:43PM Payers Insurance Name Company Name Plan Name Plan Number Policy Number Policy Group Number Start Date BCBS [facility] [id number] N/A [facility] 0 N/A History of Encounters Visit Date Visit Type Provider 11/16/2016 Office visit Feliz Sosa NP 07/01/2016 Office visit Kristy Winchester FLUORESCENT LIGHTING MODEL MAKER 01/25/2016 Hospital Haroldo Brewer MD 04/10/2015 Office visit Jammie Crawford FLUORESCENT LIGHTING MODEL MAKER 06/22/2014 Office visit 06/22/2014 Office visit Kristy Winchester FLUORESCENT LIGHTING MODEL MAKER 06/11/2014 Hospital Liz Bass MD 05/15/2014 Office visit Valentina Massey CLIP AND HANGER ATTACHER 04/11/2014 Office visit Maria Esther Roberts FLUORESCENT LIGHTING MODEL MAKER 03/22/2014 Office visit Haroldo Brewer MD 02/23/2014 Office visit Valentina ESCOBAR 02/14/2014 Office visit Wei Guidry MD 01/26/2014 Office visit Malka Graves FLUORESCENT LIGHTING MODEL MAKER 09/19/2013 Office visit Valentina ESCOBAR 07/28/2013 Office visit Valentina ESCOBAR 06/24/2013 Office [...] Santiago MD 06/21/2012 Office visit Jammie Crawford FLUORESCENT LIGHTING MODEL MAKER 06/07/2012 Office visit Jammie Crawford FLUORESCENT LIGHTING MODEL MAKER 11/13/2011 Office visit Kayleigh Santiago MD 11/13/2011 Office visit Bogdan Price MD 07/09/2011 Office visit Nita Torres MD 06/25/2011 Procedures Bogdan Price MD 05/08/2011 Office visit Bogdan Price MD 04/22/2011 [facility] Bogdan Price MD 04/03/2011 Office visit Bogdan [...]
--- OUTSIDE RECORDS SUMMARY | 2017-10-15 10:44 | XMS REPORT ---
Author Author Jammie Crawford [facility] Address [address] [place] [id number] Care Team Providers Care General Duty Nurse Name Role Phone Jammie Crawford PCP Unavailable Allergies and Adverse Reactions Name Reaction Notes Latex iodine Plan of Treatment Planned Activity Comments Planned Date Planned Time Plan/Goal COMPREHEN METABOLIC PANEL 07/01/2012 12:00 AM LIPID PANEL 07/01/2012 12:00 AM GLYCOSYLATED HEMOGLOBIN TEST 07/01/2012 12:00 AM ASSAY THYROID STIM HORMONE 07/01/2012 12:00 AM COMPLETE CBC W/AUTO DIFF WBC 07/01/2012 12:00 AM Medications Active Name Start Date Estimated Completion Date SIG Comments Calcium 600 + D(3) 600 mg(1,500mg) -400 unit oral tablet take 1 tablet by oral route daily aspirin 81 mg oral tablet,delayed release (DR/EC) take 1 tablet (81 mg) by oral route once daily loratadine 10 mg oral tablet 09/05/2013 TAKE 1 TABLET BY ORAL ROUTE ONCE DAILY clobetasol 0.05 % topical ointment 09/16/2013 APPLY TO AFFECTED RED AREA(S) EVERY NIGHT AT BEDTIME pravastatin 20 mg oral tablet 11/10/2013 TAKE 1 TABLET BY MOUTH EVERY DAY nystatin 100,000 unit/gram topical powder 01/26/2014 apply [...] MOUTH THREE TIMES DAILY FOR 30 DAYS Medrol (Abram) 4 mg oral tablets,dose pack 04/10/2015 take as directed loratadine 10 mg oral tablet 07/17/2015 TAKE 1 TABLET BY ORAL ROUTE ONCE DAILY loratadine 10 mg oral tablet 09/12/2015 TAKE 1 TABLET BY ORAL ROUTE ONCE DAILY Name Start Date Expiration Date SIG Comments [...] (137 mcg) by oral route once daily Tetrix Kit [...] by oral route daily for 30 days Mobic 15 mg oral tablet 01/20/2014 03/01/2014 take 1 tablet (15 mg) by oral route once daily for 30 days on HOLD,trying new medication Zithromax Z-Abram 250 mg oral tablet 04/11/2014 06/22/2014 Take 2 tablets the first day (500 mg) followed by 1 tablet (250 mg) days 2-5. 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 [facility] History of Procedures Date Ordered Description Order Status 08/29/2009 12:00 AM ASSAY THYROID STIM HORMONE Reviewed 06/25/2011 12:00 AM MUSCLE TEST ONE LIMB Reviewed 06/25/2011 12:00 AM NERVE CONDUCTION, MOTOR Reviewed 06/25/2011 12:00 AM NERVE CONDUCTION, SENSORY Reviewed 07/09/2011 12:00 AM CYTOPATH C/V MANUAL Reviewed 07/09/2011 12:00 AM SPECIMEN HANDLING OFFICE-LAB Reviewed 07/09/2011 12:00 AM MAMMOGRAM BOTH BREASTS Reviewed 11/13/2011 12:00 AM COMPREHEN METABOLIC PANEL Returned 11/13/2011 12:00 AM LIPID PANEL Returned 11/13/2011 12:00 AM ASSAY THYROID STIM HORMONE Returned 11/13/2011 12:00 AM COMPLETE CBC W/AUTO DIFF WBC Returned 06/07/2012 12:00 AM THER/PROPH/DIAG INJ SC/IM Reviewed 06/07/2012 12:00 AM Decadron, Per 1 Mg [facility]# [address]-58 Reviewed 06/07/2012 12:00 AM Depo-Medrol, Per 80 Mg [facility]#4061-9842-40 Reviewed 06/21/2012 12:00 AM CHEST X-RAY 2VW FRONTAL&LATL Returned 06/21/2012 12:00 AM CULTURE OTHR SPECIMN AEROBIC Reviewed 07/01/2012 12:00 AM IMMUNIZATION ADMIN Reviewed 07/01/2012 12:00 AM TDAP VACCINE 7 YRS/> IM Reviewed 07/09/2012 12:00 AM CYTOPATH TBS C/V MANUAL Returned 07/09/2012 12:00 AM SPECIMEN HANDLING OFFICE-LAB Reviewed [...] 12:00 AM COMPLETE CBC W/AUTO DIFF WBC Returned 01/26/2014 12:00 AM COMPREHEN METABOLIC PANEL Returned 01/26/2014 12:00 AM LIPID PANEL Returned 01/26/2014 12:00 AM ASSAY THYROID STIM HORMONE Returned 02/27/2014 12:00 AM INJ TRIGGER POINT 1/2 MUSCL Reviewed 02/27/2014 12:00 AM Kenalog, Per 10 Mg [facility]#0859-6868-85 Reviewed 09/10/2010 12:00 AM THER/PROPH/DIAG INJ SC/IM Reviewed 09/10/2010 12:00 AM Depo-Medrol 120 Mg Im JOHN Reviewed 06/22/2014 12:00 AM MAMMOGRAM SCREENING Returned 06/22/2014 12:00 AM CYTOPATH TBS C/V MANUAL Returned Results Summary Data and Description Results 08/29/2009 8:45 AM Colonoscopy-Women and Men over 50 Declined Mammogram -Women over 40 Normal Pap Smear Negative 08/29/2009 9:26 AM TSH 2.060 uIU/mL 06/12/2010 12:00 AM Cholest Cry Stone Ql IR 208.0 %LDLc SerPl-mCnc 129.0 mg/ dLGlucose SerPl-mCnc 95.0 mg/dL 06/12/2010 9:42 AM TRIGLYCERIDES 151.0 mg/dLCHOLESTEROL 208.0 mg/dLHDL 49.0 mg/ dLLDL (CALC) 129.0 mg/dLTSH 5.230 uIU/mLGLUCOSE 95.0 mg/dLSODIUM 139.0 mmol/ LPOTASSIUM 4.10 mmol/LCHLORIDE 105.0 mmol/LCO2 26.0 mmol/LBUN 13.0 mg/ dLCREATININE 0.80 mg/dLSGOT/AST 16.0 IU/LSGPT/ALT 16.0 IU/LALK PHOS 83.0 IU/ LTOTAL PROTEIN 7.90 g/dLALBUMIN 4.10 g/dLTOTAL BILI 0.20 mg/dLCALCIUM 9.60 mg/ dLeGFR >60 mL/min/1.73 m2WBC 4.4 RBC 4.13 HGB 12.90 g/dLHCT 39.40 %MCV 95.0 fLMCH 31.20 pgMCHC 32.70 g/dLRDW CV 12.80 %MPV 10.40 fLPLT 220 %NEUT 46.70 %% LYMP 43.20 %%MONO 6.60 %%EOS 3.0 %%BASO 0.50 %#NEUT 2.06 #LYMP 1.90 #MONO 0.29 # EOS 0.13 #BASO 0.02 07/04/2010 12:00 AM Mammogram -Women over 40 Normal 07/10/2010 12:10 PM Depression Has Depression HIV1+2 Ab Ser Ql no risk Dexa Bone Scan Refused 07/11/2010 9:16 AM Aspirin reccommended Reccommended 03/21/2011 9:33 AM WBC 3.9 RBC 3.91 HGB 12.50 g/dLHCT 37.30 %MCV 95.0 fLMCH 32.0 pgMCHC 33.50 g/dLRDW CV 13.30 %MPV 10.40 fLPLT 223 %NEUT 52.10 %%LYMP 37.0 %%MONO 7.0 %%EOS 3.60 %%BASO 0.30 %#NEUT 2.01 #LYMP 1.43 #MONO 0.27 #EOS 0.14 # BASO 0.01 GLUCOSE 93.0 mg/dLSODIUM 140.0 mmol/LPOTASSIUM 3.70 mmol/LCHLORIDE 105.0 mmol/LCO2 27.0 mmol/LBUN 15.0 mg/dLCREATININE 0.80 mg/dLSGOT/AST 15.0 IU/ LSGPT/ALT 16.0 IU/LALK PHOS 69.0 IU/LTOTAL PROTEIN 7.60 g/dLALBUMIN 3.90 g/ dLTOTAL BILI 0.40 mg/dLCALCIUM 9.20 mg/dLeGFR >60 mL/min/1.73 [id number] 91.0 mg/dLCHOLESTEROL 208.0 mg/dLHDL 50.0 mg/dLLDL (CALC) 140.0 mg/ dLGLYCOHEMOGLOBIN A1C 5.70 % 11/13/2011 10:31 AM Colonoscopy-Women and Men over 50 Declined Mammogram -Women over 40 Normal Pap Smear Negative 11/13/2011 11:05 AM WBC 3.9 RBC 4.14 HGB 13.0 g/dLHCT 39.30 %MCV 95.0 fLMCH 31.40 pgMCHC 33.10 g/dLRDW CV 13.10 %MPV 10.80 fLPLT 261 %NEUT 54.60 %%LYMP 35.10 %%MONO 7.90 %%EOS 2.10 %%BASO 0.30 %#NEUT 2.13 #LYMP 1.37 #MONO 0.31 #EOS 0.08 #BASO 0.01 GLUCOSE 102.0 mg/dLSODIUM 141.0 mmol/LPOTASSIUM 4.40 mmol/ LCHLORIDE 105.0 mmol/LCO2 28.0 mmol/LBUN 16.0 mg/dLCREATININE 0.80 mg/dLSGOT/ AST 16.0 IU/LSGPT/ALT 16.0 IU/LALK PHOS 81.0 IU/LTOTAL PROTEIN 8.0 g/dLALBUMIN 4.30 g/dLTOTAL BILI 0.40 mg/dLCALCIUM 9.50 mg/dLeGFR 60 TRIGLYCERIDES 86.0 mg/ dLCHOLESTEROL 215.0 mg/dLHDL 48.0 mg/dLLDL (CALC) 150.0 mg/dLTSH 4.120 uIU/mL 06/21/2012 10:12 AM WBC 4.0 RBC 4.25 HGB 13.50 g/dLHCT 40.0 %MCV 94.0 fLMCH 31.80 pgMCHC 33.80 g/dLRDW CV 12.80 %MPV 10.40 fLPLT 257 %NEUT 50.20 %%LYMP 40.50 %%MONO 6.30 %%EOS 2.50 %%BASO 0.50 %#NEUT 2.01 #LYMP 1.62 #MONO 0.25 #EOS 0.10 #BASO 0.02 GLUCOSE 90.0 mg/dLSODIUM 142.0 mmol/LPOTASSIUM 3.60 mmol/ LCHLORIDE 106.0 mmol/LCO2 28.0 mmol/LBUN 16.0 mg/dLCREATININE 0.80 mg/dLSGOT/ AST 11.0 IU/LSGPT/ALT 10.0 IU/LALK PHOS 76.0 IU/LTOTAL PROTEIN 7.90 g/dLALBUMIN 4.10 g/dLTOTAL BILI 0.70 mg/dLCALCIUM 9.80 mg/dLeGFR 60 GLUCOSE 90.0 mg/ dLSODIUM 142.0 mmol/LPOTASSIUM 3.60 mmol/LCHLORIDE 106.0 mmol/LCO2 28.0 mmol/ LBUN 16.0 mg/dLCREATININE 0.80 mg/dLSGOT/AST 11.0 IU/LSGPT/ALT 10.0 IU/LALK PHOS 76.0 IU/LTOTAL PROTEIN 7.90 g/dLALBUMIN 4.10 g/dLTOTAL BILI 0.70 mg/ dLCALCIUM 9.80 mg/dLeGFR 60 TRIGLYCERIDES 71.0 mg/dLCHOLESTEROL 223.0 mg/dLHDL 56.0 mg/dLLDL (CALC) 153.0 mg/dLTSH 3.640 uIU/mL 04/22/2013 10:18 AM HGB A1C 5.60 %Est Avg Glucose 114.0 mg/dLGLUCOSE 95.0 mg/ dLSODIUM 145.0 mmol/LPOTASSIUM 3.60 mmol/LCHLORIDE 106.0 mmol/LCO2 29.0 mmol/ LBUN 13.0 mg/dLCREATININE 0.80 mg/dLSGOT/AST 19.0 IU/LSGPT/ALT 22.0 IU/LALK PHOS 72.0 IU/LTOTAL PROTEIN 7.70 g/dLALBUMIN 4.10 g/dLTOTAL BILI 0.50 mg/ dLCALCIUM 9.60 mg/dLeGFR >60 mL/min/1.73 [id number] 79.0 mg/dLCHOLESTEROL 211.0 mg/dLHDL 60.0 mg/dLLDL (CALC) 135.0 mg/dLTSH 3.690 uIU/mLWBC 4.0 RBC 3.96 HGB 12.50 g/dLHCT 37.20 %MCV 94.0 fLMCH 31.60 pgMCHC 33.60 g/dLRDW CV 12.90 % MPV 10.10 fLPLT 255 %NEUT 52.70 %%LYMP 36.40 %%MONO 7.60 %%EOS 3.0 %%BASO 0.30 % #NEUT 2.09 #LYMP 1.44 #MONO 0.30 #EOS 0.12 #BASO 0.01 09/19/2013 10:00 AM GLUCOSE 102.0 mg/dLSODIUM 141.0 mmol/LPOTASSIUM 3.50 mmol/ LCHLORIDE 103.0 mmol/LCO2 28.0 mmol/LBUN 18.0 mg/dLCREATININE 0.90 mg/dLCALCIUM 9.50 mg/dLeGFR >60 mL/min/1.73 [id number] 1.90 mg/dL 01/26/2014 9:52 AM WBC 3.8 RBC 3.91 HGB 12.20 g/dLHCT 36.40 %MCV 93.0 fLMCH 31.20 pgMCHC 33.50 g/dLRDW CV 13.0 %MPV 10.20 fLPLT 238 %NEUT 50.70 %%LYMP 40.0 %%MONO 6.10 %%EOS 2.70 %%BASO 0.50 %#NEUT 1.90 #LYMP 1.50 #MONO 0.23 #EOS 0.10 # BASO 0.02 GLUCOSE 96.0 mg/dLSODIUM 141.0 mmol/LPOTASSIUM 3.60 mmol/LCHLORIDE 104.0 mmol/LCO2 28.0 mmol/LBUN 16.0 mg/dLCREATININE 0.90 mg/dLSGOT/AST 19.0 IU/ LSGPT/ALT 17.0 IU/LALK PHOS 89.0 IU/LTOTAL PROTEIN 7.50 g/dLALBUMIN 4.10 g/ dLTOTAL BILI 0.80 mg/dLCALCIUM 9.40 mg/dLeGFR 60 TRIGLYCERIDES 79.0 mg/ dLCHOLESTEROL 183.0 mg/dLHDL 61.0 mg/dLLDL (CALC) 106.0 mg/dLTSH 5.020 uIU/mL History Of [...] 999 Tdap 07/01/2012 sanofi pasteur PMC Fluzone [id number] Intramuscular Left Deltoid 07/01/2012 11/26/2006 999 Influenza 04/13/2013 sanofi pasteur PMC Fluzone Intramuscular Not Entered 07/13/2015 07/13/2015 141 [...] 2016 10:54AM Dyspepsia Jan 24 2016 10:54AM Payers Insurance Name Company Name Plan Name Plan Number Policy Number Policy Group Number Start Date [facility] [id number] N/A [employer] Employee [employer] [facility] Employee Health 0 N/A History of Encounters Visit Date Visit Type Provider 04/10/2015 Office visit Jammie Crawford BABBITT SPINNER 06/22/2014 Office visit 06/22/2014 Office visit Kristy Winchester BABBITT SPINNER 06/11/2014 [facility] Liz Bass MD 05/15/2014 Office visit Valentina Massey ROLL HAULER 04/11/2014 Office visit Maria Esther Roberts BABBITT SPINNER 03/22/2014 Office visit Haroldo Brewer MD 02/23/2014 Office visit Valentina ESCOBAR 02/14/2014 Office visit Wei Guidry MD 01/26/2014 Office visit Malka Graves BABBITT SPINNER 09/19/2013 Office visit Valentina MCarmelita ESCOBAR 07/28/2013 Office visit Valentinachelsey Massey ROLL HAULER 06/24/2013 Office visit Valentina ArenCarmelita WARDP 06/13/2013 Office visit Haroldo Brewer MD 05/31/2013 [...] Santiago MD 06/21/2012 Office visit Jammie Crawford BABBITT SPINNER 06/07/2012 Office visit Jammie Crawford APRN 11/13/2011 [...]
[2017-10-15 10:45] VITALS: BP 152/97
--- OUTSIDE RECORDS SUMMARY | 2017-10-15 10:46 | XMS REPORT ---
Author Kristy Wood [facility] Address [address] [place], [place] [id number] Care Team Providers Care Digital Business Analyst Name Role Phone Kristy Winchester PCP Shayy Fitzgerald PreferredProvider Unavailable Allergies and Adverse Reactions Name Reaction Notes Latex iodine Plan of Treatment Planned Activity Comments Planned Date Planned Time Plan/Goal Pap smear 07/03/2017 12:00 AM Comprehensive Metabolic Panel 07/01/2012 12:00 [...] HC BMI BSA BMI Percentile O2 Sat(%) 07/03/2017 8:58:00 AM 143 mmHg 88 mmHg 90 bpm 98.8 F 227 lbs 67 in 35.55 kg/m2 2.21 m2 06/09/2017 4:04:00 PM 122 mmHg 64 mmHg [...] alone in a house 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 [facility] History of Procedures Date Ordered Description Order [...] 06/07/2012 12:00 AM Decadron, Per 1 Mg [facility]# [address]-93 Reviewed 06/07/2012 12:00 AM Depo-Medrol, Per 80 Mg [facility]#5283-0990-07 Reviewed 06/21/2012 12:00 AM CHEST X-RAY 2VW FRONTAL&LATL Reviewed 06/21/2012 12:00 AM CULTURE OTHR SPECIMN AEROBIC Reviewed 07/03/2017 12:00 AM SPECIMEN HANDLING OFFICE-LAB Reviewed 07/03/2017 12:00 AM MAMMOGRAPHY SCREENING, DIGITAL Reviewed 07/01/2012 12:00 AM IMMUNIZATION ADMIN Reviewed [...] 02/27/2014 12:00 AM Kenalog, Per 10 Mg [facility]#1511-1309-00 Reviewed 09/10/2010 12:00 AM THER/PROPH/DIAG INJ SC/IM [...] 999 Tdap 07/01/2012 sanofi pasteur PMC Fluzone [id number] Intramuscular Left Deltoid 07/01/2012 11/26/2006 999 Influenza [...] Strain of back Jun 09 2017 4:12PM Encounter for screening mammogram for breast cancer Jul 03 2017 9:06AM Routine gynecological examination Jul 03 2017 9:04AM Screening Mammogram Jul 03 2017 9:04AM Hot flashes due to menopause Jul 03 2017 9:04AM Payers Insurance Name Company Name Plan Name Plan Number Policy Number Policy Group Number Start Date BCBS [facility] [id number] N/A [facility] 0 N/A History of Encounters Visit Date Visit Type Provider 07/03/2017 Office visit Kristy Winchester MERRY GO ROUND ATTENDANT 06/09/2017 Office visit Donald Monet DO 04/08/2017 Procedures Haroldo Brewer MD 11/16/2016 Office visit Feliz Sosa NP 07/01/2016 Office visit Kristy Winchester MERRY GO ROUND ATTENDANT 01/25/2016 [facility] Haroldo Brewer MD 04/10/2015 Office visit Jammie Crawford MERRY GO ROUND ATTENDANT 06/22/2014 Office visit 06/22/2014 Office visit Kristy Winchester MERRY GO ROUND ATTENDANT 06/11/2014 Hospital Liz Bass MD 05/15/2014 Office visit Valentina Massey CONTINUOUS PROCESS ROTARY DRUM TANNER 04/11/2014 Office visit Nolamichelle PuenteCarmelita Roberts MERRY GO ROUND ATTENDANT 03/22/2014 Office visit Haroldo Brewer MD 02/23/2014 Office visit Valentina Massey CONTINUOUS PROCESS ROTARY DRUM TANNER 02/14/2014 Office visit Wei Guidry MD 01/26/2014 Office visit Malka Graves MERRY GO ROUND ATTENDANT 09/19/2013 Office visit Valentina Massey CONTINUOUS PROCESS ROTARY DRUM TANNER 07/28/2013 Office visit Valentina Massey CONTINUOUS PROCESS ROTARY DRUM TANNER 06/24/2013 Office visit Valentina Massey CONTINUOUS PROCESS ROTARY DRUM TANNER 06/13/2013 Office visit Haroldo Brewer MD 05/31/2013 Procedures Haroldo Brewer MD 05/26/2013 Office visit Valentina Massey CONTINUOUS PROCESS ROTARY DRUM TANNER 05/06/2013 Office visit Pauline Wayne MD 04/22/2013 [...] Santiago MD 06/21/2012 Office visit Jammie Crawford MERRY GO ROUND ATTENDANT 06/07/2012 Office visit Jammie Crawford MERRY GO ROUND ATTENDANT 11/13/2011 Office visit Kayleigh Santiago MD 11/13/2011 Office visit Bogdan Price MD 07/09/2011 Office visit Nita Torres MD 06/25/2011 Procedures Bogdan Price MD 05/08/2011 Office visit Bogdan Price MD 04/22/2011 [facility] Bogdan Price MD 04/03/2011 Office visit [...]
--- OUTSIDE RECORDS SUMMARY | 2017-10-15 10:47 | XMS REPORT ---
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 [facility] History of Procedures Date Ordered Description [...] 06/07/2012 12:00 AM Decadron, Per 1 Mg [facility]# [address]-25 Reviewed 06/07/2012 12:00 AM Depo-Medrol, Per 80 Mg [facility]#6319-2402-70 Reviewed 06/21/2012 12:00 AM CHEST X-RAY 2VW [...] 02/27/2014 12:00 AM Kenalog, Per 10 Mg [facility]#6036-5344-41 Reviewed 09/10/2010 12:00 AM THER/PROPH/DIAG INJ SC/IM [...] 999 Tdap 07/01/2012 sanofi pasteur PMC Fluzone [id number] Intramuscular Left Deltoid 07/01/2012 11/26/2006 999 Influenza [...] for breast cancer Jul 03 2017 9:06AM Payers Insurance Name Company Name Plan Name Plan Number Policy Number Policy Group Number [id number] N/A [facility] Employee Health [facility] Health 0 N/A History of Encounters Visit Date Visit Type Provider 07/03/2017 Office visit Kristy Winchester PIT CLERK 06/09/2017 Office visit Donald Monet DO 04/08/2017 Procedures Haroldo Brewer MD 11/16/2016 Office visit Feliz Sosa NP 07/01/2016 Office visit Kristy Winchester PIT CLERK 01/25/2016 Hospital Haroldo Brewer MD 04/10/2015 Office visit Jammie Crawford PIT CLERK 06/22/2014 Office visit 06/22/2014 Office visit Kristy Winchester PIT CLERK 06/11/2014 Hospital Liz Bass MD 05/15/2014 Office visit Valentina ESCOBAR 04/11/2014 Office visit Maria Esther Roberts PIT CLERK 03/22/2014 Office visit Haroldo Brewer MD 02/23/2014 Office visit Valentina Massey INSURANCE CHECKER 02/14/2014 Office visit Wei Guidry MD 01/26/2014 Office visit Malka Graves PIT CLERK 09/19/2013 Office visit Valentina ArenCarmelita Massey INSURANCE CHECKER 07/28/2013 Office visit Valentina ArenCarmelita Massey INSURANCE CHECKER 06/24/2013 Office visit Valentina WARDP 06/13/2013 Office visit Haroldo Brewer MD 05/31/2013 Procedures Haroldo Brewer MD 05/26/2013 Office visit Valentina WARDP 05/06/2013 Office visit Pauline Wayne MD [...] Santiago MD 06/21/2012 Office visit Jammie Crawford PIT CLERK 06/07/2012 Office visit Jammie Crawford APRN 11/13/2011 Office visit Kayleigh Santiago MD 11/13/2011 Office visit Bogdan Price MD 07/09/2011 Office visit Nita Torres MD 06/25/2011 Procedures Bogdan Price MD 05/08/2011 Office visit Bogdan Price MD 04/22/2011 [facility] Bogdan Price MD 04/03/2011 Office [...]
--- OUTSIDE RECORDS SUMMARY | 2017-10-15 10:49 | XMS REPORT ---
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# [address]-45 Reviewed 06/07/2012 12:00 AM Depo-Medrol, Per [address] [facility]#9715-2067-93 Reviewed 06/21/2012 12:00 AM CHEST X-RAY 2VW [...] 02/27/2014 12:00 AM Kenalog, Per [address] [facility]#1772-6355-51 Reviewed 09/10/2010 12:00 AM THER/PROPH/DIAG INJ SC/IM [...] 999 Tdap 07/01/2012 sanofi pasteur PMC Fluzone [id number] Intramuscular Left Deltoid 07/01/2012 11/26/2006 999 Influenza [...] 4:43PM Sebaceous cyst Apr 08 2017 11:46AM Payers Insurance Name Company Name Plan Name Plan Number Policy Number Policy Group Number Start Date BCBS [facility] [id number] N[facility] History of Encounters Visit Date Visit Type Provider 04/08/2017 Procedures Haroldo Brewer MD 11/16/2016 Office visit Feliz Sosa NP 07/01/2016 Office visit Kristy Winchester COIL INSPECTOR 01/25/2016 Hospital Haroldo Brewer MD 04/10/2015 Office visit Jammie Crawford COIL INSPECTOR 06/22/2014 Office visit 06/22/2014 Office visit Kristy Winchester COIL INSPECTOR 06/11/2014 Hospital Liz Bass MD 05/15/2014 Office visit Valentina ESCOBAR 04/11/2014 Office visit Maria Esther Roberts COIL INSPECTOR 03/22/2014 Office visit Haroldo Brewer MD 02/23/2014 Office visit Valentina ESCOBAR 02/14/2014 Office visit Wei Guidry MD 01/26/2014 Office visit Malka Graves COIL INSPECTOR 09/19/2013 Office visit Valentina ESCOBAR 07/28/2013 Office [...] Santiago MD 06/21/2012 Office visit Jammie Crawford COIL INSPECTOR 06/07/2012 Office visit Jammie Crawford COIL INSPECTOR 11/13/2011 Office visit Kayleigh Santiago MD 11/13/2011 Office visit Bgodan Price MD 07/09/2011 Office visit Nita Torres [...]
--- OUTSIDE RECORDS SUMMARY | 2017-10-15 10:51 | XMS REPORT ---
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 [facility] History of Procedures Date Ordered Description [...] 12:00 AM Decadron, Per 1 Mg [facility]# [address]-61 Reviewed 06/07/2012 12:00 AM Depo-Medrol, Per 80 Mg [facility]#0973-7934-32 Reviewed 06/21/2012 12:00 AM CHEST X-RAY 2VW [...] 12:00 AM Kenalog, Per 10 Mg [facility]#6206-0510-12 Reviewed 09/10/2010 12:00 AM THER/PROPH/DIAG INJ SC/IM [...] 999 Tdap 07/01/2012 sanofi pasteur PMC Fluzone [id number] Intramuscular Left Deltoid 07/01/2012 11/26/2006 999 Influenza [...] Policy Group Number Start Date BCBS [facility] [id number] [facility] History of Encounters Visit Date Visit Type Provider 04/08/2017 Procedures Haroldo Brewer MD 11/16/2016 Office visit Feliz Sosa NP 07/01/2016 Office visit Kristy Winchester PRODUCTION STAGE MANAGER 01/25/2016 Hospital Haroldo Brewer MD 04/10/2015 Office visit Jammie Crawford PRODUCTION STAGE MANAGER 06/22/2014 Office visit 06/22/2014 Office visit Kristy Winchester PRODUCTION STAGE MANAGER 06/11/2014 Hospital Liz Bass MD 05/15/2014 Office visit Valentina ESCOBAR 04/11/2014 Office visit Maria Esther Roberts PRODUCTION STAGE MANAGER 03/22/2014 Office visit Haroldo Brewer MD 02/23/2014 Office visit Valentina ESCOBAR 02/14/2014 Office visit Wei Guidry MD 01/26/2014 Office visit Malka Graves PRODUCTION STAGE MANAGER 09/19/2013 Office visit Valentina ESCOBAR 07/28/2013 Office [...] Santiago MD 06/21/2012 Office visit Jammie Crawford PRODUCTION STAGE MANAGER 06/07/2012 Office visit Jammie Crawford PRODUCTION STAGE MANAGER 11/13/2011 Office visit Kayleigh Santiago MD 11/13/2011 [...]
--- OUTSIDE RECORDS SUMMARY | 2017-10-15 10:53 | XMS REPORT ---
Author Author Donald Monet [facility] Address [address] [place], [place] [address] Care Team Providers Care Community Support Specialist Name Role Phone Donald Monet PCP Oscar Duran PreferredProvider Allergies and Adverse Reactions Name Reaction Notes [...] ONCE DAILY loratadine 10 mg oral tablet 07/17/2015 TAKE 1 TABLET BY ORAL ROUTE ONCE DAILY Voltaren 1 % topical gel apply 2 gram to the affected area(s) by topical route 4 times per day diclofenac sodium 1 % topical gel 06/09/2017 apply 2 gram to the affected area(s) by topical route 4 times per day for 30 days Invokana 300 mg oral tablet 07/28/2017 08/27/2017 TAKE 1 TABLET(S) BY MOUTH DAILY BEFORE THE FIRST MEAL OF THE DAY. Zipsor 25 mg oral capsule 07/28/2017 09/06/2017 TAKE 1 TABLET BY MOUTH UP TO THREE TIMES DAILY FOR PAIN tramadol 50 mg oral tablet 07/28/2017 08/27/2017 take 1-2 tablets by oral route every 4-6 hours as needed pravastatin 20 mg oral tablet take 1 tablet (20 mg) by oral route once daily clobetasol-emollient 0.05 % topical cream apply a thin layer to the affected area(s) by topical route as needed nystatin 100,000 unit/gram topical cream apply to the affected area(s) by topical route 2 times per day pantoprazole 40 mg oral tablet,delayed release (DR/EC) take 1 tablet ( 40 mg) by oral route 2 times per day pramipexole 0.5 mg oral tablet take 1 tablet (0.5 mg) by oral route as needed for cramps hyoscyamine sulfate 0.375 mg oral tablet extended release 12 hr take 1 tablet (0.375 mg) by oral route every 12 hours doxycycline hyclate 20 mg oral tablet take 1 tablet (20 mg) by oral route daily hydroxychloroquine 200 mg oral tablet take 1 tablet (200 mg) by oral route 2 times per day levothyroxine 125 mcg oral tablet take 1 tablet (125 mcg) by oral route once daily 2 Lead TENS unit 08/21/2017 05/16/2020 Use as needed for chronic pain Quarter inch heel lift 08/21/2017 05/16/[address] Place in right shoe beneath insole Name Start Date Expiration Date SIG Comments [...] device 07/01/20122012 USE ONE PUFF TWICE DAILY Ultram 50 mg oral tablet 05/26/2013 07/25/2013 [...] route 3 times per for 10 days amoxicillin 875 mg oral tablet 04/10/2015 04/20/2015 take 1 tablet (875 mg) by oral route every 12 hours for 10 days Bactrim DS 800-160 mg oral tablet 11/16/2016 11/26/2016 take 1 tablet by oral route every 12 hours for 10 days cyclobenzaprine 10 mg oral tablet 07/28/2017 07/28/2017 1/2-1 tab up to 3X a day as needed for muscle spasms/tension Discontinued Name Start Date Discontinued Date SIG [...] ONCE DAILY Invokana 100 mg oral tablet 08/06/2017 take 1 tablet (100 mg) by oral route once daily before the first meal of the day levothyroxine 112 mcg oral tablet 08/06/2017 take 1 tablet (112 mcg) by oral route once daily dosage change Problem List Description Status Onset Asthma Active Migraine Active Depressive Disorder Active Joint Pain Active cervical neck pain Active Menopausal Syndrome Active Hypothyroidism, Acquired Active GERD Active Eczema Active Chemical/Irritant Dermatitis Active 07/11/2010 Vital Signs Date Time BP-Sys(mm[Hg] BP-Nicolette(mm[Hg]) HR(bpm) RR(rpm) Temp WT HT HC BMI BSA BMI Percentile O2 Sat(%) 08/21/2017 11:49:00 AM 118 mmHg 74 mmHg 84 bpm 16 rpm 99 F 98 % 08/06/2017 11:31:00 AM 118 mmHg 80 mmHg 84 bpm 20 rpm 99.3 F 216.125 lbs 67 in 33.8496 kg/m 2.1527 m 97 % 07/21/2017 11:35:00 AM 140 mmHg 52 mmHg 84 bpm 98.2 F 218.25 lbs 100 % 07/03/2017 8:58:00 AM 143 mmHg 88 mmHg 90 bpm 98.8 F 227 lbs 67 in 35.5529 kg/m 2.2062 m 06/09/2017 4:04:00 PM 122 mmHg 64 mmHg [...] alone in a house Single No children 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 Retardation 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 [facility] History of Procedures Date Ordered Description Order [...] 06/07/2012 12:00 AM Decadron, Per 1 Mg [facility]# [address]-18 Reviewed 06/07/2012 12:00 AM Depo-Medrol, Per 80 Mg [facility]#6978-3474-21 Reviewed 06/21/2012 12:00 AM CHEST X-RAY 2VW FRONTAL&LATL Reviewed 06/21/2012 12:00 AM CULTURE OTHR SPECIMN AEROBIC Reviewed 07/03/2017 12:00 AM CYTOPATH C/V THIN LAYER Reviewed 07/03/2017 12:00 AM SPECIMEN HANDLING OFFICE-LAB Reviewed 07/03/2017 12:00 AM MAMMOGRAPHY SCREENING, DIGITAL Reviewed 07/21/2017 12:00 AM X-RAY BEND ONLY L-S SPINE Returned 07/01/2012 12:00 AM IMMUNIZATION ADMIN Reviewed 07/01/2012 12:00 AM TDAP VACCINE 7 YRS/> IM Reviewed 07/09/2012 12:00 AM CYTOPATH TBS C/V MANUAL Reviewed 07/09/2012 12:00 AM SPECIMEN HANDLING OFFICE-LAB Reviewed 08/06/2017 12:00 AM ASSAY THYROID STIM HORMONE Returned 07/20/2012 12:00 AM NERVE CONDUCTION, MOTOR Reviewed [...] 02/27/2014 12:00 AM Kenalog, Per 10 Mg [facility]#5192-0786-23 Reviewed 09/10/2010 12:00 AM THER/PROPH/DIAG INJ SC/IM [...] NE Not Entered Not Entered Not Entered 07/13/2019 07/13/2019 999 X 06/17/2006 Merck & Co., Inc. MSD Pneumovax 23 Intramuscular Not Entered 07/13/2019 07/13/2019 999 Td 02/16/2007 sanofi pasteur PMC DECAVAC Intramuscular Not Entered 201907/13/2019 999 Tdap 07/01/2012 sanofi pasteur PMC Fluzone [id number] Intramuscular Left Deltoid 07/01/2012 11/26/2006 999 Influenza 04/13/2013 sanofi pasteur PMC Fluzone Intramuscular Not Entered 07/13/2019 07/13/2019 141 History of Past Illness Name Date [...] due to menopause Jul 03 2017 9:04AM Lumbar spondylosis Jul 21 2017 11:41AM Chronic pain syndrome Jul 21 2017 11:41AM Strain of right deltoid muscle, initial encounter Jul 21 2017 11:41AM Strain of back Jul 21 2017 11:41AM Hypothyroidism, Acquired Aug 06 2017 11:33AM Knee effusion, left Aug 06 2017 11:33AM Mild intermittent asthma without complication Aug 06 2017 11:33AM Hypothyroidism, Acquired Aug 21 2017 11:52AM Leg length discrepancy Aug 21 2017 11:52AM Chronic pain syndrome Aug 21 2017 11:52AM Lumbar spondylosis Aug 21 2017 11:52AM Scoliosis of lumbar spine Aug 21 2017 11:52AM Strain of unspecified muscle, fascia and tendon at shoulder and upper arm level , right arm, subsequent encounter Aug 21 2017 11:52AM Payers Insurance Name Company Name Plan Name Plan Number Policy Number Policy Group Number [facility] Date [id number] History of Encounters Visit Date Visit Type Provider 08/21/2017 Office visit Donald Monet DO 08/06/[address] Oscar Duran MD 07/21/2017 Office visit Doanld Monet DO 07/03/2017 Office visit Kristy Winchester CORE INSERTER 06/09/2017 Office visit Donald Monet DO 04/08/2017 Procedures Haroldo Brewer MD 11/16/2016 Office visit Feliz Sosa NP 07/01/2016 Office visit Kristy Winchester CORE INSERTER 01/25/2016 Hospital Haroldo Brewer MD 04/10/2015 Office visit Jammie Crawford CORE INSERTER 06/22/2014 Office visit 06/22/2014 Office visit Kristy Winchester CORE INSERTER 06/11/2014 Hospital Liz Bass MD 05/15/2014 Office visit Valentina Massey ACCOUNT SERVICES REPRESENTATIVE 04/11/2014 Office visit Maria Esther Roberts CORE INSERTER 03/22/2014 Office visit Haroldo Brewer MD 02/23/2014 Office visit Valentina ESCOBAR 02/14/2014 Office visit Wei Guidry MD 01/26/2014 Office visit Malka Graves CORE INSERTER 09/19/2013 Office visit Valentina ESCOBAR 07/28/2013 Office [...] Santiago MD 06/21/2012 Office visit Jammie Crawford CORE INSERTER 06/07/2012 Office visit Jammie Crawford DAYAN 11/13/2011 Office visit Kayleigh Santiago MD 11/13/2011 Office visit Bogdan Price MD 07/09/2011 Office visit Nita Torres MD 06/25/2011 Procedures Bogdan Price MD 05/08/2011 Office visit Bogdan Price MD 04/22/2011 [facility] Bogdan Price MD 04/03/2011 Office visit [...]
--- OUTSIDE RECORDS SUMMARY | 2017-10-15 10:55 | XMS REPORT ---
Author Oscar Rubio [facility] Address [address] [place], [place] [address] Care Team Providers Care Public Health Training Assistant Name Role Phone Oscar Duran PCP Oscar Duran PreferredProvider Allergies and Adverse Reactions Name Reaction Notes Latex iodine Plan of Treatment Planned Activity Comments Planned Date Planned Time Plan/Goal LUMBAR SPINE BENDING 4 VWS 07/21/2017 12:00 AM Comprehensive Metabolic Panel 07/01/2012 12:00 AM Lipid panel (total cholesterol, lipoproteins, HDL, triglycerides) 2011 12:00 AM Hemoglobin A1c 07/01/2012 12:00 AM Thyroid stimulating hormone (TSH) 07/01/2012 12:00 AM CBC (automated H&H, platelets, WBC and automated differential) 07/01/2012 12:00 AM TSH 08/06/2017 12:00 AM Medications Active Name Start Date [...] (125 mcg) by oral route once daily Name Start Date Expiration Date SIG Comments [...] HC BMI BSA BMI Percentile O2 Sat(%) 08/06/2017 11:31:00 AM 118 mmHg 80 mmHg 84 bpm 20 rpm 99.3 F 216.125 lbs 67 in 33.85 kg/m2 2.15 m2 97 % 07/21/2017 11:35:00 AM 140 mmHg [...] alone in a house 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 MSD Pneumovax 23 Intramuscular Not Entered 07/13/2017 07/13/2017 999 Td 02/16/2007 sanofi pasteur PMC DECAVAC Intramuscular Not Entered 201707/13/2017 999 Tdap 07/01/2012 sanofi pasteur PMC Fluzone [id number] Intramuscular Left Deltoid 07/01/2012 11/26/2006 999 Influenza 04/13/2013 sanofi pasteur PMC Fluzone Intramuscular Not Entered 07/13/2017 07/13/2017 141 History of Past Illness Name Date [...] asthma without complication Aug 06 2017 11:33AM Payers Insurance Name Company Name Plan Name Plan Number Policy Number Policy Group Number [id number] N/A [facility] 0 N/A History of Encounters Visit Date Visit Type Provider 08/06/[address] Oscar Duran MD 07/21/2017 Office visit Donald Monet DO 07/03/2017 Office visit Kristy Winchester CITIZENSHIP TEACHER 06/09/2017 Office visit Donald Monet DO 04/08/2017 Procedures Haroldo Brewer MD 11/16/2016 Office visit Feliz Sosa NP 07/01/2016 Office visit Kristy Winchester CITIZENSHIP TEACHER 01/25/2016 Hospital Haroldo Brewer MD 04/10/2015 Office visit Jammie Crawford CITIZENSHIP TEACHER 06/22/2014 Office visit 06/22/2014 Office visit Kristy Winchester CITIZENSHIP TEACHER 06/11/2014 [facility] Liz Bass MD 05/15/2014 Office visit Valentina Massey DATA CENTER ENGINEER 04/11/2014 Office visit Maria Esther Roberts CITIZENSHIP TEACHER 03/22/2014 Office visit Haroldo Brewer MD 02/23/2014 Office visit Valentina Massey DATA CENTER ENGINEER 02/14/2014 Office visit Wei Guidry MD 01/26/2014 Office visit Malka Graves CITIZENSHIP TEACHER 09/19/2013 Office visit Valentina Massey DATA CENTER ENGINEER 07/28/2013 Office visit Valentina Massey DATA CENTER ENGINEER 06/24/2013 Office visit Valentina WARDP 06/13/2013 Office visit Haroldo Brewer MD 05/31/2013 Procedures Haroldo Brewer MD 05/26/2013 Office visit Valentina WARDP 05/06/2013 Office visit Pauline Wayne MD 04/22/2013 Office visit Pauline Wayne MD 03/30/2013 Procedures Haroldo Brewer MD 11/25/2012 Office visit Bogdan Price MD 10/07/2012 Office visit Bogdan Price MD 09/08/2012 Office visit Bogdan Price MD 08/17/2012 [facility] Bogdan Price MD 08/06/2012 Office visit Bogdan Price MD 07/20/2012 Procedures Bogdan Price MD 07/09/2012 Office visit Koko Rivera MD 07/01/2012 Office visit Kayleigh Santiago MD 06/21/2012 Office visit Jammie Crawford CITIZENSHIP TEACHER 06/07/2012 Office visit Jammie Crawford CITIZENSHIP TEACHER 11/13/2011 Office visit Kayleigh Santiago MD 11/13/2011 [...]
--- OUTSIDE RECORDS SUMMARY | 2017-10-15 10:57 | XMS REPORT ---
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 [facility] History of Procedures Date Ordered Description [...] 06/07/2012 12:00 AM Decadron, Per 1 Mg [facility]# [address]-48 Reviewed 06/07/2012 12:00 AM Depo-Medrol, Per 80 Mg [facility]#0135-6435-77 Reviewed 06/21/2012 12:00 AM CHEST X-RAY 2VW [...] 02/27/2014 12:00 AM Kenalog, Per 10 Mg [facility]#4788-3561-04 Reviewed 09/10/2010 12:00 AM THER/PROPH/DIAG INJ SC/IM [...] 999 Tdap 07/01/2012 sanofi pasteur PMC Fluzone [id number] Intramuscular Left Deltoid 07/01/2012 11/26/2006 999 Influenza [...] Policy Group Number Start Date BCBS B[facility]bs [facility] [id number] N/A [facility] 0 N/A History of Encounters Visit Date Visit Type Provider 07/03/2017 Office visit Kristy Winchester DIRECTOR STAFFING 06/09/2017 Office visit Donald Monet DO 04/08/2017 Procedures Haroldo Brewer MD 11/16/2016 Office visit Feliz Sosa NP 07/01/2016 Office visit Kristy Winchester DIRECTOR STAFFING 01/25/2016 Hospital Haroldo Brewer MD 04/10/2015 Office visit Jammie Crawford DIRECTOR STAFFING 06/22/2014 Office visit 06/22/2014 Office visit Kristy Winchester DIRECTOR STAFFING 06/11/2014 Hospital Liz Bass MD 05/15/2014 Office visit Valentina ESCOBAR 04/11/2014 Office visit Maria Esther PuenteCarmelita Roberts DIRECTOR STAFFING 03/22/2014 Office visit Haroldo Brewer MD 02/23/2014 Office visit Valentina Massey PHARMACY CLERK 02/14/2014 Office visit Wei Guidry MD 01/26/2014 Office visit Malka Graves DIRECTOR STAFFING 09/19/2013 Office visit Valentina Massey PHARMACY CLERK 07/28/2013 Office visit Valentina Massey PHARMACY CLERK 06/24/2013 Office visit Valentina Massey PHARMACY CLERK 06/13/2013 Office visit Haroldo Brewer MD 05/31/2013 Procedures Haroldo Brewer MD 05/26/2013 Office visit Valentina Massey PHARMACY CLERK 05/06/2013 Office visit Pauline Wayne MD 04/22/2013 [...] Santiago MD 06/21/2012 Office visit Jammie Crawford DIRECTOR STAFFING 06/07/2012 Office visit Jammie Crawford DIRECTOR STAFFING 11/13/2011 Office visit Kayleigh Santiago MD 11/13/2011 [...]
--- OUTSIDE RECORDS SUMMARY | 2017-10-15 10:57 | XMS REPORT | CCD ---
Author Author SHORTY HOWELL Unknown Address [address] [place], [place] [address] Care Team Providers Care Fishing Manager Name Role Phone LOVE GIL, BOB Cuevas Vital Signs Vital Sign Value Unit Date/Time Recent/Initial? Weight Measured 200 lbs 01/23/2016 11:37 Initial VS Height 67 in 01/23/2016 11:37 Initial VS BMI (Body Mass Index) 31.32 kg/m^2 01/23/2016 11:37 Initial VS BSA (Body Surface Area) 2.07 m^2 01/23/2016 11:37 Initial VS Allergies Allergy Code Allergy Type Reaction Status LATEX 0 Allergy to substance HIVES Active IODINE 5933 Drug allergy Active Procedures Procedure Code Procedure Type Date Colonoscopy flx dx w/collj spec when pfrmd; (-33 Preventive Service) 47392 CPT 01/25/2016 Egd transoral biopsy single/multiple 08379 CPT 01/25/2016 BEDSIDE GLUCOSE [id number] SNOMED CT 01/25/2016 PATHOLOGY ORDER [id number] SNOMED CT 01/25/2016 History of Immunizations Unknown or Not Available. Problems Unknown or Not Available. Results BEDSIDE GLUCOSE - Collect Date/Time: 01/25/2016 08:40 Test Name Code Test Result Test Units Test Ref Range GLUCOSE POCT 124 MG/DL L=70 H=100 Active Medications No Active Medications Medications Administered During Visit Unknown or Not Available. Encounters Encounter Diagnosis Diagnosis Code Start Date Encounter for screening for malignant neoplasm of colon Z1211 Social History Smoking Status Code Start Date End Date Never smoker [id number] Patient Decision Aids Patient Decision Aid EGD AND/OR COLONOSCOPY; AFTER THE PROCEDURE Discharge Instructions You were admitted to [facility] on 01/25/2016 07:30 with a principal diagnosis of Encounter for screening for malignant neoplasm of colon You had the following procedures done: Colonoscopy flx dx w/ collj spec when pfrmd; (-33 Preventive Service) Egd transoral biopsy single/multiple You had the following tests done: BEDSIDE GLUCOSE You were discharged from [facility] on 01/25/2016 09:42 Should you have any questions prior to discharge, please contact a member of your healthcare team. If you have left the hospital and have any questions, please contact your primary care physician. Chief Complaint and Reason For Visit Chief Complaint Date of Onset EGD CSCOPE Function Status Unknown or Not Available. Plan of Care Unknown or Not Available. Referral/Transition of Care Unknown or Not Available.
--- OUTSIDE RECORDS SUMMARY | 2017-10-15 10:58 | XMS REPORT ---
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 [facility] History of Procedures Date Ordered Description [...] 06/07/2012 12:00 AM Decadron, Per 1 Mg [facility]# [address]-08 Reviewed 06/07/2012 12:00 AM Depo-Medrol, Per 80 Mg [facility]#8860-5088-10 Reviewed 06/21/2012 12:00 AM CHEST X-RAY 2VW [...] 02/27/2014 12:00 AM Kenalog, Per 10 Mg [facility]#3344-2962-76 Reviewed 09/10/2010 12:00 AM THER/PROPH/DIAG INJ SC/IM [...] 999 Tdap 07/01/2012 sanofi pasteur PMC Fluzone [id number] Intramuscular Left Deltoid 07/01/2012 11/26/2006 999 Influenza [...] Number Policy Group Number Start Date [id number] N[facility] History of Encounters Visit Date Visit Type Provider 08/21/2017 Office visit Donald Monet DO 08/06/[address] Oscar Duran MD 07/21/2017 Office visit Donald Monet DO 07/03/2017 Office visit Kristy Winchester DECORATING MACHINE TENDER 06/09/2017 Office visit Donald Monet DO 04/08/2017 Procedures Haroldo Brewer MD 11/16/2016 Office visit Feliz Sosa NP 07/01/2016 Office visit Kristy Winchester DECORATING MACHINE TENDER 01/25/2016 Hospital Haroldo Brewer MD 04/10/2015 Office visit Jammie Crawford DECORATING MACHINE TENDER 06/22/2014 Office visit 06/22/2014 Office visit Kristy Winchester DECORATING MACHINE TENDER 06/11/2014 Hospital Liz Bass MD 05/15/2014 Office visit Valentina Massey ENGINEERING PROFESSOR 04/11/2014 Office visit Maria Esther Roberts DECORATING MACHINE TENDER 03/22/2014 Office visit Haroldo Brewer MD 02/23/2014 Office visit Valentina ESCOBAR 02/14/2014 Office visit Wei Guidry MD 01/26/2014 Office visit Malka Graves DECORATING MACHINE TENDER 09/19/2013 Office visit Valentina ESCOBAR 07/28/2013 Office [...] Santiago MD 06/21/2012 Office visit Jammie Crawford DECORATING MACHINE TENDER 06/07/2012 Office visit Jammie Crawford DAYAN 11/13/2011 Office visit Kayleigh Santiago MD 11/13/2011 Office visit Bogdan Price MD 07/09/2011 Office visit Nita Torres MD 06/25/2011 Procedures Bogdan Price MD 05/08/2011 Office visit Bogdan Price MD 04/22/2011 [facility] Bogdan Price MD 04/03/2011 Office [...]
--- OUTSIDE RECORDS SUMMARY | 2017-10-15 11:00 | XMS REPORT ---
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 [facility] History of Procedures Date Ordered Description [...] 12:00 AM Decadron, Per 1 Mg [facility]# [address]-95 Reviewed 06/07/2012 12:00 AM Depo-Medrol, Per 80 Mg [facility]#3858-0770-61 Reviewed 06/21/2012 12:00 AM CHEST X-RAY 2VW [...] 12:00 AM Kenalog, Per 10 Mg [facility]#9111-7767-71 Reviewed 09/10/2010 12:00 AM THER/PROPH/DIAG INJ SC/IM [...] uIU/mL History Of Immunizations Name Date Admin g Name Mf Code Trade Name Lot# Route Inj Vis Given Vis Pub CVX Influenza 04/21/2010 Not Entered NE Not Entered Not Entered Not Entered 07/13/2015 07/13/2015 999 X 06/17/2006 Merck & Co., Inc. MSD Pneumovax 23 Intramuscular Not Entered 07/13/2015 07/13/2015 999 Td 02/16/2007 sanofi pasteur PMC DECAVAC Intramuscular Not Entered 201507/13/2015 999 Tdap 07/01/2012 sanofi pasteur PMC Fluzone [id number] Intramuscular Left Deltoid 07/01/2012 11/26/2006 999 Influenza [...] for breast cancer Jul 01 2016 9:57AM Payers Insurance Name Company Name Plan Name Plan Number Policy Number Policy Group Number Start Date [facility] [id number] N/A [facility] Employee [facility] 0 N/A History of Encounters Visit Date Visit Type Provider 07/01/2016 Office visit Kristy Winchester OVERLOCK SLEEVE SETTER 01/25/2016 Hospital Haroldo Brewer MD 04/10/2015 Office visit Jammie Crawford APRN 06/22/2014 Office visit 06/22/2014 Office visit Kristy Winchester OVERLOCK SLEEVE SETTER 06/11/2014 [facility] Liz Bass MD 05/15/2014 Office visit Valentina ESCOBAR 04/11/2014 Office visit Maria Esther Roberts OVERLOCK SLEEVE SETTER 03/22/2014 Office visit Haroldo Brewer MD 02/23/2014 Office visit Valentina ESCOBAR 02/14/2014 Office visit Wei Guidry MD 01/26/2014 Office visit Malka Graves APRN 09/19/2013 Office visit Valentina ESCOBAR 07/28/2013 Office [...] Santiago MD 06/21/2012 Office visit Jammie Crawford OVERLOCK SLEEVE SETTER 06/07/2012 Office visit Jammie Crawford OVERLOCK SLEEVE SETTER 11/13/2011 Office visit Kayleigh Santiago MD 11/13/2011 Office visit Bogdan Price MD 07/09/2011 Office visit Nita Torres MD 06/25/2011 Procedures Bogdan Price MD 05/08/2011 Office visit Bogdan Price MD 04/22/2011 [facility] Bogdan Price MD 04/03/2011 Office [...]
--- OUTSIDE RECORDS SUMMARY | 2017-10-15 11:02 | XMS REPORT ---
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 Role Phone PCP Unavailable Allergies and Adverse Reactions Name [...] Date SIG Comments Calcium 600 + D(3) Oral Tablet 600-400 mg-unit take 1 tablet by oral route daily Aspirin Oral Tablet, Delayed Release (E.C.) 81 mg take 1 tablet (81 mg) by oral route once daily loratadine oral tablet 10 mg 09/05/2013 TAKE 1 TABLET BY ORAL ROUTE ONCE DAILY clobetasol topical ointment 0.05 % 09/16/2013 APPLY TO AFFECTED RED AREA(S) EVERY NIGHT AT BEDTIME pravastatin oral tablet 20 mg 11/10/2013 TAKE 1 TABLET BY MOUTH EVERY DAY nystatin topical powder 100,000 unit/gram 01/26/2014 apply to the affected area(s) by topical route 2 times per day nystatin-triamcinolone topical cream 100,000-0.1 unit/g-% 01/26/2014 apply to the affected area(s) by topical route 2 times per day in the morning and evening cyclobenzaprine oral tablet 10 mg 04/26/2014 take 1 tablet (10 mg) by oral route 3 times per day for 30 days loratadine oral tablet 10 mg 06/30/2014 TAKE 1 TABLET BY ORAL ROUTE ONCE DAILY Zipsor oral capsule 25 mg 10/18/2014 01/16/2015 take 1 capsule (25 mg) by oral route 4 times per day /PRN tramadol oral tablet 50 mg 10/18/2014 01/16/2015 take 1-2 tablets by oral route every 4-6 hours as needed Name Start Date Expiration Date SIG Comments Flector Topical Adhesive Patch, Medicated 1.3 % 07/26/2009 10/24/2009 apply 1 patch (180 mg) to most painful area by transdermal route 2 times per day for 30 days Medrol (Abram) Oral Tablets, Dose Pack 4 mg 08/29/2009 take as directed Flexeril Oral Tablet 10 mg 07/10/2010 09/08/2010 take1/2- 1 tablet (10 mg) by oral route q hs/PRN Meloxicam Oral Tablet 15 mg 07/10/2010 11/07/2010 take 1 tablet (15 mg) by oral route once daily /PRN Loprox Topical Shampoo 1 % 07/11/2010 01/23/2011 apply 5 - 10 milliliters to wet hair by topical route twice weekly for 4 weeks with at least 3 days between each shampooing Betamethasone Valerate Topical Ointment 0.1 % 07/11/2010 07/25/2010 apply a thin film to affected area(s) by topical route 3 times per day for 14 days Prednisone 20 mg 07/11/2010 07/25/2010 one table PO QD Amoxicillin Oral Tablet 875 mg 09/10/2010 09/20/2010 take 1 tablet (875 mg) by oral route every 12 hours for 10 days diclofenac sodium Oral Tablet, Delayed Release (E.C.) 75 mg 07/15/20112011 TAKE 1 TABLET BY MOUTH ONCE DAILY NEEDED venlafaxine Oral Capsule, Ext Release 24 hr 150 mg 09/22/2011 10/22/2011 TAKE 1 CAPSULE BY MOUTH ONCE DAILY WITH FOOD loratadine Oral Tablet 10 mg 11/13/2011 11/07/2012 take 1 tablet (10 mg) by oral route once daily Zithromax Z-Abram Oral Tab 250 MG 06/07/2012 06/12/2012 Take 2 tablets the first day (500 mg) followed by 1 tablet (250 mg) days 2-5. for 5 days clobetasol Topical Ointment 0.05 % 07/01/2012 09/29/2012 APPLY TO AFFECTED RED AREA(S) EVERY NIGHT AT BEDTIME Advair Diskus Inhalation Disk with Device 100-50 mcg/dose 07/01/20122012 USE ONE PUFF TWICE DAILY pravastatin Oral tablet 20 mg 04/25/2013 07/24/2013 take 1 tablet (20 mg) by oral route once daily for 30 days Ultram Oral tablet 50 mg 05/26/2013 07/25/2013 take 1 tablet (50 mg) by oral route every 4-6 hours as needed for 30 days Voltaren Topical Gel 1 % 05/26/2013 09/23/2013 apply 4 gram to affected area( s) by topical route 4 times cyclobenzaprine oral tablet 10 mg 07/28/2013 10/26/2013 take 1 tablet (10 mg) by oral route 3 times per day for 30 days Singulair Oral tablet 10 mg 11/22/2013 05/21/2014 take 1 tablet (10 mg) by oral route once daily in the evening levothyroxine oral tablet 50 mcg 01/27/2014 04/27/2014 take 1 tablet (50 mcg ) by oral route once daily for 30 days Protonix oral tablet,delayed release (DR/EC) 40 mg 03/22/2014 07/20/2014 take 1 tablet (40 mg) by oral route once daily for 30 days Tessalon Perles Oral capsule 100 mg 04/12/2014 04/22/2014 take 1 capsule ( 100 mg) by oral route 3 times per for 10 days Discontinued Name Start Date Discontinued Date SIG Comments Cymbalta Oral Capsule, Delayed Release(E.C.) 60 mg 08/29/2009 06/12/2010 take 1 capsule (60 mg) by oral route once daily Ibuprofen Oral Tablet 800 mg 05/29/2010 07/10/2010 take 1 tablet by oral route 3 times a day as needed for 8 days may use OTC. Ketoconazole Topical Shampoo 2 % 06/12/2010 11/13/2011 apply shampoo by topical route twice weekly with at least 3 days between each shampooing Synthroid Oral Tablet 137 mcg 06/13/2010 07/09/2011 take 1 tablet (137 mcg) by oral route once daily Tetrix Topical Cream 07/11/2010 11/13/2011 apply to affected area(s) by topical route daily Ammonium Lactate Topical Cream 12 % 07/11/2010 11/13/2011 apply to affected area(s) by topical route daily Effexor XR Oral Capsule, Sust. Release 24 hr 150 mg 09/10/2010 11/13/2011 take 1 capsule (150 mg) by oral route once daily with food Cymbalta Oral Capsule, Delayed Release(E.C.) 60 mg 11/13/2011 07/28/2013 take 1 capsule (60 mg) by oral route once daily Diaz Salazar Oral capsule 100 mg 06/07/2012 07/01/2012 take 1-2 capsules by oral route 3 times a day as needed albuterol sulfate Inhalation HFA Aerosol Inhaler 90 mcg/actuation 06/21/2012 04/22/2013 inhale 1 - 2 puffs by inhalation route every 6 hours as needed promethazine-codeine Oral Syrup 6.25-10 mg/5 mL 06/21/2012 04/22/2013 take 5 milliliters by oral route every 4-6 hours as needed, not to exceed 30 mL in 24 hours Medrol (Abram) Oral tablets,dose pack 4 mg 06/21/2012 07/01/2012 take as directed doxycycline hyclate Oral capsule 100 mg 07/28/2013 take 1 capsule (100 mg) by oral route once daily pravastatin Oral tablet 20 mg 07/02/2012 04/22/2013 take 1 tablet (20 mg) by oral route once daily at bedtime Naprelan CR oral tablet, ER multiphase 24 hr 500 mg 11/25/2012 07/28/2013 take 2 tablet (500 mg) by oral route daily for 30 days Mobic oral tablet 15 mg 01/20/2014 03/01/2014 take 1 tablet (15 mg) by oral route once daily for 30 days on HOLD,trying new medication Zithromax Z-Abram Oral Tab 250 MG 04/11/2014 06/22/2014 Take 2 tablets the first day (500 mg) followed by 1 tablet (250 mg) days 2-5. for 5 days Medrol (Abram) oral tablets,dose pack 4 mg 04/11/2014 06/22/2014 take as directed Problem List Description Status Onset Asthma Active Migraine Active Depressive Disorder Active Joint Pain Active cervical neck pain Active Menopausal Syndrome Active Hypothyroidism, Acquired Active GERD Active Eczema Active Chemical/Irritant Dermatitis Active 07/11/2010 Vital Signs Date Time BP-Sys(mm[Hg] BP-Nicolette(mm[Hg]) HR(bpm) RR(rpm) Temp WT HT HC BMI BSA BMI Percentile O2 Sat(%) 06/22/2014 9:02:00 AM 130 mmHg 70 mmHg 70 bpm 97.9 F 212 lbs 67 in 33.20 kg/m2 2.13 m2 05/15/2014 2:06:00 PM 110 mmHg 80 mmHg 74 bpm 16 rpm 97.7 F 213.125 lbs 67 in 33.3798 kg/m 2.1377 m 04/11/2014 7:47:00 PM 124 mmHg 72 mmHg 92 bpm 18 rpm 99.5 F 208.125 lbs 67 in 32.60 kg/m2 2.11 m2 100 % 03/22/2014 11:33:00 AM 124 mmHg 86 mmHg 77 bpm 16 rpm 96 F 208 lbs 67 in 32.5771 kg/m 2.1119 m 98 % 02/23/2014 3:02:00 PM 116 mmHg 80 mmHg 82 bpm 16 rpm 97.2 F 210 lbs 67 in 32.89 kg/m2 2.12 m2 01/26/2014 9:24:00 AM 122 mmHg 74 mmHg 76 bpm 18 rpm 97 F 202.375 lbs 67 in 31.6961 kg/m 2.0831 m 100 % 09/19/2013 8:40:00 AM 110 mmHg 70 mmHg 64 bpm 16 rpm 96.6 F 197.25 lbs 67 in 30.89 kg/m2 2.06 m2 07/28/2013 9:14:00 AM 126 mmHg 84 mmHg 62 bpm 16 rpm 96.3 F 194 lbs 67 in 30.3844 kg/m 2.0396 m 06/24/2013 8:38:00 AM 132 mmHg 74 mmHg 64 bpm 16 rpm 97.1 F 196 lbs 66.5 in 31.16 kg/m2 2.04 m2 05/26/2013 1:31:00 PM 124 mmHg 80 mmHg 70 bpm 16 rpm 97.2 F 202 lbs 67 in 31.6373 kg/m 2.0812 m 05/06/2013 8:33:00 AM 122 mmHg 88 mmHg 86 bpm 18 rpm 97.4 F 212 lbs 67 in 33.20 kg/m2 2.13 m2 98 % 04/22/2013 8:26:00 AM 112 mmHg 75 mmHg 76 bpm 18 rpm 98 F 209 lbs 67 in 32.7337 kg/m 2.1169 m 98 % 03/30/2013 11:32:00 AM 130 mmHg 94 mmHg 64 bpm 20 rpm 97 F 208 lbs 67 in 32.58 kg/m2 2.11 m2 11/25/2012 9:08:00 AM 138 mmHg 84 mmHg 64 bpm 16 rpm 96.7 F 190 lbs 67 in 29.7579 kg/m 2.0184 m 10/07/2012 8:10:00 AM 132 mmHg 92 mmHg 74 bpm 16 rpm 97 F 182 lbs 67 in 28.50 kg/m2 1.98 m2 09/08/2012 8:20:00 AM 110 mmHg 80 mmHg 64 bpm 16 rpm 97 F 185 lbs 67 in 28.9748 kg/m 1.9917 m 08/06/2012 11:13:00 AM 104 mmHg 58 mmHg 74 bpm 16 rpm 97.3 F 192 lbs 67 in 30.07 kg/m2 2.03 m2 07/01/2012 9:29:00 AM 140 mmHg 90 mmHg [...] alone in a house Single No children 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 [facility] History of Procedures Date Ordered [...] 06/07/2012 12:00 AM THER/PROPH/DIAG INJ SC/IM Reviewed 06/21/2012 12:00 AM CHEST X-RAY 2VW [...] AM INJ TRIGGER POINT 1/2 MUSCL Reviewed 09/10/2010 12:00 AM THER/PROPH/DIAG INJ SC/IM Reviewed 06/22/2014 12:00 AM MAMMOGRAM SCREENING Returned [...] BILI 0.40 mg/dLCALCIUM 9.20 mg/dLeGFR >60 mL/min/1.73 [id number] 91.0 mg/dLCHOLESTEROL 208.0 mg/dLHDL 50.0 mg/dLLDL (CALC) [...] uIU/mL 04/22/2013 10:18 AM HGB A1C 5.60 %GLUCOSE 95.0 mg/dLSODIUM 145.0 mmol/ LPOTASSIUM 3.60 mmol/LCHLORIDE 106.0 mmol/LCO2 29.0 mmol/LBUN 13.0 mg/ dLCREATININE 0.80 mg/dLSGOT/AST 19.0 IU/LSGPT/ALT 22.0 IU/LALK PHOS 72.0 IU/ LTOTAL PROTEIN 7.70 g/dLALBUMIN 4.10 g/dLTOTAL BILI 0.50 mg/dLCALCIUM 9.60 mg/ dLeGFR >60 mL/min/1.73 [id number] 79.0 mg/dLCHOLESTEROL 211.0 mg/dLHDL 60.0 mg/dLLDL (CALC) 135.0 mg/dLTSH 3.690 uIU/mLWBC 4.0 RBC 3.96 HGB 12.50 g/ dLHCT 37.20 %MCV 94.0 fLMCH 31.60 pgMCHC 33.60 g/dLRDW CV 12.90 %MPV 10.10 fLPLT 255 %NEUT 52.70 %%LYMP 36.40 %%MONO 7.60 %%EOS 3.0 %%BASO 0.30 %#NEUT 2.09 #LYMP 1.44 #MONO 0.30 #EOS 0.12 #BASO 0.01 09/19/2013 10:00 AM GLUCOSE 102.0 mg/dLSODIUM 141.0 mmol/LPOTASSIUM 3.50 mmol/ LCHLORIDE 103.0 mmol/LCO2 28.0 mmol/LBUN 18.0 mg/dLCREATININE 0.90 mg/dLCALCIUM 9.50 mg/dLeGFR >60 mL/min/1.73 [id number] 1.90 mg/dL 01/26/2014 9:52 AM WBC 3.8 [...] NE Not Entered Not Entered Not Entered 07/13/2014 07/13/2014 999 Pneumococcal 06/17/2006 [employer] MSD Pneumovax 23 Intramuscular Not Entered 07/13/2014 07/13/2014 999 Td 02/16/2007 sanofi pasteur PMC DECAVAC Intramuscular Not Entered 201407/13/2014 999 Tdap 07/01/2012 sanofi pasteur PMC Fluzone [id number] Intramuscular Left Deltoid 07/01/2012 11/26/2006 999 Influenza 04/13/2013 sanofi pasteur PMC Fluzone Intramuscular Not Entered 07/13/2014 07/13/2014 141 History of Past Illness Name Date [...] 2:07PM Muscle Spasm May 15 2014 2:07PM Payers Insurance Name Company Name Plan Name Plan Number Policy Number Policy Group Number Start Date Bcbs [facility] [id number] N/A [facility] Employee [facility] Health 0 N/A History of Encounters Visit Date Visit Type Provider 06/22/2014 Office visit Kristy Winchester SHOWROOM CONSULTANT 06/11/2014 Hospital Liz Bass MD 05/15/2014 Office visit Valentina Massey ANIMAL COP 04/11/2014 Office visit Maria Esther Roberts SHOWROOM CONSULTANT 03/22/2014 Office visit Haroldo Brewer MD 02/23/2014 Office visit Valentina Massey ANIMAL COP 02/14/2014 Office visit Wei Guidry MD 01/26/2014 Office visit Malka Graves SHOWROOM CONSULTANT 09/19/2013 Office visit Valentina WARDP 07/28/2013 Office visit Valentina ESCOBAR 06/24/2013 Office visit Valentina ESCOBAR 06/13/2013 Office visit Haroldo Brewer MD 05/31/2013 Procedures Haroldo Brewer MD 05/26/2013 Office visit Valentina ESCOBAR 05/06/2013 Office visit Pauline Wayne MD 04/22/2013 Office visit Pauline Wayne MD 03/30/2013 Procedures Haroldo Brewer MD 11/25/2012 Office visit Bogdan Price MD 10/07/2012 Office visit Bogdan Price MD 09/08/2012 Office visit Bogdan Price MD 08/17/2012 [facility] Bogdan Price MD 08/06/2012 Office visit Bogdan Price MD 07/20/2012 Procedures Bogdan Price MD 07/09/2012 Office visit Koko Rivera MD 07/01/2012 Office visit Kayleigh Santiago MD 06/21/2012 Office visit Jammie Crawford SHOWROOM CONSULTANT 06/07/2012 Office visit Jammie Crawford APRN 11/13/2011 Office visit Bogdan Price MD 11/13/2011 Office visit Kayleigh Santiago MD 07/09/2011 Office visit Nita Torres MD [...]
--- OUTSIDE RECORDS SUMMARY | 2017-10-15 11:04 | XMS REPORT ---
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 [facility] History of Procedures Date Ordered [...] 06/07/2012 12:00 AM Decadron, Per 1 Mg [facility]# [address]-78 Reviewed 06/07/2012 12:00 AM Depo-Medrol, Per 80 Mg [facility]#8995-4590-13 Reviewed 06/21/2012 12:00 AM CHEST X-RAY 2VW [...] 02/27/2014 12:00 AM Kenalog, Per 10 Mg [facility]#4440-5245-12 Reviewed 09/10/2010 12:00 AM THER/PROPH/DIAG INJ SC/IM [...] 999 Tdap 07/01/2012 sanofi pasteur PMC Fluzone [id number] Intramuscular Left Deltoid 07/01/2012 11/26/2006 999 Influenza 04/13/2013 [facility] Fluzone Intramuscular Not Entered 07/13/2017 07/13/2017 141 [...] Strain of back Jul 21 2017 11:41AM Payers Insurance Name Company Name Plan Name Plan Number Policy Number Policy Group Number Start Date BCBS [facility] [id number] N/A [facility] Health 0 N/A History of Encounters Visit Date Visit Type Provider 07/21/2017 Office visit Donald Monet DO 07/03/2017 Office visit Kristy Winchester EQUIPMENT SPECIALIST 06/09/2017 Office visit Donald Monet DO 04/08/2017 Procedures Haroldo Brewer MD 11/16/2016 Office visit Feliz Sosa NP 07/01/2016 Office visit Kristy Winchester EQUIPMENT SPECIALIST 01/25/2016 Hospital Haroldo Brewer MD 04/10/2015 Office visit Jammie Crawford EQUIPMENT SPECIALIST 06/22/2014 Office visit 06/22/2014 Office visit Kristy Winchester EQUIPMENT SPECIALIST 06/11/2014 Hospital Liz Bass MD 05/15/2014 Office visit Valentina Massey OUTCOMES SPECIALIST 04/11/2014 Office visit Maria Esther Roberts EQUIPMENT SPECIALIST 03/22/2014 Office visit Haroldo Brewer MD 02/23/2014 Office visit Valentina Massey OUTCOMES SPECIALIST 02/14/2014 Office visit Wei Guidry MD 01/26/2014 Office visit Malka Graves EQUIPMENT SPECIALIST 09/19/2013 Office visit Valentina Massey OUTCOMES SPECIALIST 07/28/2013 Office visit Valentina ESCOBAR 06/24/2013 Office [...] Santiago MD 06/21/2012 Office visit Jammie Crawford EQUIPMENT SPECIALIST 06/07/2012 Office visit Jammie Crawford EQUIPMENT SPECIALIST 11/13/2011 Office visit Kayleigh Santiago MD 11/13/2011 Office visit Bogdan Price MD 07/09/2011 Office visit Nita Torres MD 06/25/2011 Procedures Bogdan Price MD 05/08/2011 Office visit Bogdan Price MD 04/22/2011 [facility] Bogdan Price MD 04/03/2011 Office [...]
--- OUTSIDE RECORDS SUMMARY | 2017-10-15 11:05 | XMS REPORT ---
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[employer] Operator Name Role Phone Jammie Crawford PCP Unavailable [...] MOUTH THREE TIMES DAILY FOR 30 DAYS amoxicillin 875 mg oral tablet 04/10/2015 04/20/2015 take 1 tablet (875 mg) by oral route every 12 hours for 10 days Medrol (Abram) 4 mg oral tablets,dose pack 04/10/2015 take as directed Name Start Date Expiration Date SIG Comments [...] oral route every 4-6 hours as needed Discontinued Name Start Date Discontinued Date SIG [...] HC BMI BSA BMI Percentile O2 Sat(%) 04/10/2015 7:40:00 PM 79 bpm 20 rpm [...] F 185 lbs 67 in 28.9748 kg/m 1.99 m2 08/06/2012 11:13:00 AM 104 mmHg 58 mmHg 74 bpm 16 rpm 97.3 F 192 lbs 67 in 30.07 kg/m2 2.029 m 07/01/2012 9:29:00 AM 140 mmHg [...] alone in a house Single No children [employer]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# [address]-96 Reviewed 06/07/2012 12:00 AM Depo-Medrol, Per 80 Mg [facility]#7211-6133-87 Reviewed 06/21/2012 12:00 AM CHEST X-RAY 2VW [...] Returned 02/27/2014 12:00 AM INJ TRIGGER POINT / MUSCL Reviewed 02/27/2014 12:00 AM Kenalog, Per 10 Mg [facility]#0073-0395-60 Reviewed 09/10/2010 12:00 AM THER/PROPH/DIAG INJ SC/IM [...] BILI 0.40 mg/dLCALCIUM 9.20 mg/dLeGFR >60 mL/min/1.73 [id number] 91.0 mg/dLCHOLESTEROL 208.0 mg/dLHDL 50.0 mg/dLLDL (CALC) [...] 0.50 mg/ dLCALCIUM 9.60 mg/dLeGFR >60 mL/min/1.73 [id number] 79.0 mg/dLCHOLESTEROL 211.0 mg/dLHDL 60.0 mg/dLLDL (CALC) [...] mg/dLCREATININE 0.90 mg/dLCALCIUM 9.50 mg/dLeGFR >60 mL/min/1.73 [id number] 1.90 mg/dL 01/26/2014 9:52 AM WBC 3.8 [...] 999 Tdap 07/01/2012 sanofi pasteur PMC Fluzone [id number] Intramuscular Left Deltoid 07/01/2012 11/26/2006 999 Influenza 04/13/2013 [facility] Fluzone Intramuscular Not Entered 07/13/2014 07/13/2014 141 [...] Upper Respiratory Infections Apr 10 2015 7:41PM Payers Insurance Name Company Name Plan Name Plan Number Policy Number Policy Group Number Start Date Bcbs [facility] [id number] N/A [facility] Employee Health [facility] Health 0 N/A History of Encounters Visit Date Visit Type Provider 04/10/2015 Office visit Jammie Crawford MUSIC INSTRUCTOR 06/22/2014 Office visit Kristy Winchester MUSIC INSTRUCTOR 06/11/2014 Alexei Bass MD 05/15/2014 Office visit Valentina ESCOBAR 04/11/2014 Office visit Maria Esther Roberts MUSIC INSTRUCTOR 03/22/2014 Office visit Haroldo Brewer MD 02/23/2014 Office visit Valentina ESCOBAR 02/14/2014 Office visit Wei Guidry MD 01/26/2014 Office visit Malka Graves MUSIC INSTRUCTOR 09/19/2013 Office visit Valentina ESCOBAR 07/28/2013 Office [...] Santiago MD 06/21/2012 Office visit Jammie Crawford MUSIC INSTRUCTOR 06/07/2012 Office visit Jammie Crawford MUSIC INSTRUCTOR 11/13/2011 Office visit Kayleigh Santiago MD 11/13/2011 Office visit Bogdan Price MD 07/09/2011 Office visit Nita Torres MD 06/25/2011 Procedures Bogdan Price MD 05/08/2011 Office visit Bogdan Price MD 04/22/2011 [facility] Bogdan Price MD 04/03/2011 Office [...]
--- OUTSIDE RECORDS SUMMARY | 2017-10-15 11:06 | XMS REPORT | Continuity of Care Document ---
Author Author [facility] Organization [facility] Address Unknown Phone Unavailable Allergies Active Description Code Type Severity Reaction Onset Reported/Identified Relationship to Patient Clinical Status Yes IODINE 41798040 DRUG N/A IV DYE Yes IODINE 23980325 DRUG N/A N/A Yes LATEX 32751050 ENVIRONMENTAL N/ A HIVES Yes iodine Drug N/A N/ A Yes Latex Drug N/A N/ A Yes Iodinated Contrast- Oral and IV Dye [id number] Drug Allergy Unknown N/A Yes latex [id number] Drug Allergy Unknown N/A 10/09/2017 Medications There is no data. Problems Date Dx Coded Attending Type Code Diagnosis Diagnosed By 07/12/2017 P E53501 Pain in right shoulder 07/13/2017 P W59685 Pain in right shoulder 08/12/2017 P Z1231 Encounter for screening mammogram for malignant neoplasm of breast 08/13/2017 P K78960 Pain in left knee 08/13/2017 P E039 Hypothyroidism , unspecified 08/13/2017 S M4186 Other forms of scoliosis, lumbar region 08/13/2017 P D75493 Spondylosis without myelopathy or radiculopathy, lumbar region 09/11/2017 P M545 Low back pain 10/02/2017 S J329 Chronic sinusitis, unspecified 10/02/2017 P Z68950 Encounter for preprocedural cardiovascular examination 10/02/2017 S L87867 Encounter for preprocedural laboratory examination 10/08/2017 HAROLDO BROOKS MD Ot H66.93 OTITIS MEDIA, UNSPECIFIED, BILATERAL 10/08/2017 HAROLDO BROOKS MD Ot J32.9 CHRONIC SINUSITIS, UNSPECIFIED 10/08/2017 HAROLDO BROOKS MD Ot J34.3 HYPERTROPHY OF NASAL TURBINATES 10/08/2017 HAROLDO BROOKS MD Ot Z01.818 ENCOUNTER FOR OTHER PREPROCEDURAL EXAMIN 10/09/2017 HAROLDO BROOKS MD Ot H66.93 OTITIS MEDIA, UNSPECIFIED, BILATERAL 10/09/2017 HAROLDO BROOKS MD Ot J32.9 CHRONIC SINUSITIS, UNSPECIFIED 10/09/2017 HAROLDO BROOKS MD, Ot J34.3 HYPERTROPHY OF NASAL TURBINATES 10/09/2017 HAROLDO BROOKS MD Ot Z01.818 ENCOUNTER FOR OTHER PREPROCEDURAL EXAMIN 10/09/2017 HAROLDO BROOKS MD, Ot H66.93 OTITIS MEDIA, UNSPECIFIED, BILATERAL 10/09/2017 HAROLDO BROOKS MD Ot J32.9 CHRONIC SINUSITIS, UNSPECIFIED 10/09/2017 HAROLDO BROOKS MD, Ot J34.3 HYPERTROPHY OF NASAL TURBINATES 10/09/2017 HAROLDO BROOKS MD, Ot Z01.818 ENCOUNTER FOR OTHER PREPROCEDURAL EXAMIN Procedures There is no data. Results Test Result Range RPR, Rfx Qn RPR/Confirm TP - 05/20/17 12:00 RPR Non Reactive Non Reactive Legionella pneumophila Abs. - 06/18/16 18:30 Legionella pneumophila Abs. <0.91 OD ratio 0.00-0.90 Immunoglobulin G, Qn, Serum - 06/18/16 18:30 Immunoglobulin G, Qn, Serum 1618 mg/dL 700-1600 Fungus (Mycology) Culture - 06/18/16 18:34 Fungus (Mycology) Culture Note Capillary blood glucose measurement by glucometer (mass/volume) - 10/15/17 07: 18 Capillary blood glucose measurement by glucometer (mass/volume) 91 mg/dL 70-110 Encounters ACCT No. Visit Date/Time Discharge Status Pt. Type Provider Facility Loc./Unit Complaint [id number] 08/21/2017 12:43:06 08/21/2017 23:59:59 CLS Outpatient Donald Monet [id number] 08/06/2017 12:08:29 08/06/2017 23:59:59 CLS Outpatient Oscar Duran [id number] 07/21/2017 12:32:12 07/21/2017 23:59:59 CLS Outpatient Donald Monet [id number] 07/03/2017 09:53:59 07/03/2017 23:59:59 CLS Outpatient Kristy Winchester [id number] 06/09/2017 17:00:40 06/09/2017 23:59:59 CLS Outpatient Donald Monet [id number] 04/08/2017 11:12:51 04/08/2017 23:59:59 CLS Outpatient Haroldo Brewer [id number] 11/16/2016 16:52:45 11/16/2016 23:59:59 CLS Outpatient Feliz Sosa [id number] 07/01/2016 10:17:02 07/01/2016 23:59:59 CLS Outpatient Kristy Winchester [id number] 04/10/2015 20:32:39 04/10/2015 23:59:59 CLS Outpatient Jammie Crawford [id number] 07/18/2014 12:07:15 07/18/2014 23:59:59 CLS Outpatient Liz Bass Bry [id number] 06/22/2014 09:53:18 06/22/2014 23:59:59 CLS Outpatient Kristy Winchester [id number] 05/15/2014 14:57:37 05/15/2014 23:59:59 CLS Outpatient Valentina Massey [id number] 04/11/2014 20:45:08 04/11/2014 23:59:59 CLS Outpatient Maria Esther Roberts [id number] 03/22/2014 12:21:03 03/22/2014 23:59:59 CLS Outpatient Daniella Haroldo [id number] 02/23/2014 15:59:33 02/23/2014 23:59:59 CLS Outpatient Valentina Massey [id number] 02/14/2014 15:16:01 02/14/2014 23:59:59 CLS Outpatient Wie Guidry [id number] 01/26/2014 10:18:52 01/26/2014 23:59:59 CLS Outpatient Malka Graves [id number] 07/28/2013 10:03:11 07/28/2013 23:59:59 CLS Outpatient Valentina Massey [id number] 05/23/2017 07:07:00 Document Registration [id number] 05/22/2016 11:06:00 Document Registration [id number] 07/21/2017 08:40:00 07/21/2017 23:59:59 CLS Outpatient Kayleigh Malone [facility] [id number] 07/21/2017 08:30:00 07/21/2017 23:59:59 DIS Outpatient Magda Guidry [facility] [id number] 06/09/2017 07:53:53 06/09/2017 23:59:59 DIS Outpatient Kayleigh Malone [facility] [id number] 06/23/2016 19:05:00 Document Registration [id number] 06/29/2014 12:58:26 06/29/2014 12:58:27 DIS Outpatient [id number] 10/02/2017 10:56:40 Document Registration [id number] 09/21/2017 04:48:43 Document Registration [id number] 08/13/2017 11:53:09 Document Registration [id number] 08/13/2017 11:50:54 Document Registration [id number] 08/12/2017 15:13:18 Document Registration [id number] 08/12/2017 15:10:06 Document Registration [id number] 07/13/2017 11:01:50 Document Registration [id number] 06/17/2017 15:51:58 Document Registration [id number] 03/30/2017 11:58:12 Document Registration [id number] 06/20/2016 11:06:00 Document Registration [id number] 07/21/2016 09:05:00 Document Registration [id number] 10/09/2017 07:30:00 10/09/2017 08:22:00 DIS Outpatient HAROLDO BROOKS MD [facility] PREOP CHRONIC SINUSITIS, HYPERTROPHY TURBINATES [id number] 10/15/2017 07:30:00 PEN Preadmit [facility],HYPERTROPHY TURBINATES
[2017-10-15 11:15] VITALS: BP 151/95
--- NOTE | 2017-10-15 11:41 | Anesthesia-General Post-Op ---
General Patient Condition Mental Status/LOC: Same as Preop Cardiovascular: Satisfactory Nausea/Vomiting: Absent Respiratory: Satisfactory Pain: Controlled Complications: Absent Post Op Complications Complications None Follow Up Care/Instructions Patient Instructions None needed. Anesthesia/Patient Condition Patient Condition Patient is doing well, no complaints, stable vital signs, no apparent adverse anesthesia problems. No complications reported per nursing. D/C home per [facility]: Yes NATHALY SOTOMAYOR CRNA Oct 15, 2017 11:41
[2017-10-15 11:45] VITALS: BP 148/85
[2017-10-15 12:45] VITALS: BP 148/85
== END 2017-10-15 12:55 | disposition home or self-care (01) ==
LOC: SDC 06:28
PROVIDERS: ATTEND Otolaryngology Otolaryngology/Facial Plastic Surgery
DX: J32.2 Chronic ethmoidal sinusitis (principal); J32.0 Chronic maxillary sinusitis; J34.2 Deviated nasal septum; J34.3 Hypertrophy of nasal turbinates; H65.23 Chronic serous otitis media, bilateral; E07.9 Disorder of thyroid, unspecified; K21.9 Gastro-esophageal reflux disease without esophagitis; Z79.899 Other long term (current) drug therapy
CPT/HCPCS: 82962; 87081